=== PATIENT | female | born 1945 | race Caucasian/White ===

== ENCOUNTER 2024-03-18 14:11 | Outpatient (REF) | payer MEDICARE, SELFPAY ==
--- NOTE | ~2024-03-18 | MM_ITS ---
EXAMINATION: MM SCREENING DIGITAL BREAST TOMOSYNTHESIS, BILATERAL CLINICAL INFORMATION: Screening. Asymptomatic. COMPARISON: Mammography: This study is compared with prior exams dating back to 2019. TECHNIQUE: Digital breast tomosynthesis is performed in both the craniocaudal and mediolateral oblique views along with computer-aided detection (CAD). Synthesized 2D images are generated from the tomosynthesis. FINDINGS: There are scattered areas of fibroglandular density (ACR BI-RADS breast composition Category b). There are no significant masses, abnormal calcifications, or other abnormalities. There are a few, unchanged, benign calcification in the left breast. MM/MM tomosynthesis screening BI IMPRESSION: No mammographic evidence of malignancy. ASSESSMENT: BI-RADS BI-RADS 1 - Negative RECOMMENDATION: Routine annual mammography screening. 1 year F/U This examination should not preclude the clinical evaluation of a suspicious palpable abnormality. This patient's information was entered into a reminder system with a target due date for their next mammogram. Electronically signed by: Flower Jimenez MD 04/15/2024 12:09 PM EDT
== END 2024-03-18 14:12 | disposition home or self-care (01) ==
LOC: HO.MAMMO 14:11
PROVIDERS: PCP Internal Medicine; Visit Provider Internal Medicine
DX: Z12.31 Encounter for screening mammogram for malignant neoplasm of breast (principal)
CPT/HCPCS: 77063; 77067

== ENCOUNTER → 2024-03-18 14:30 | Outpatient (BNV) | payer MEDICARE, SELFPAY | PROVIDERS: PCP Internal Medicine; Visit Provider Radiology Diagnostic Radiology | DX: Z12.31 Encounter for screening mammogram for malignant neoplasm of breast (principal) | CPT/HCPCS: 77063; 77067 ==

== ENCOUNTER 2025-04-13 14:27 | Outpatient (REF) | payer MEDICARE, SELFPAY ==
--- NOTE | ~2025-04-13 | MM_ITS ---
EXAMINATION: MM SCREENING DIGITAL BREAST TOMOSYNTHESIS, BILATERAL CLINICAL INFORMATION: Screening. Asymptomatic. COMPARISON: Mammography: Comparison is made with available priors TECHNIQUE: Digital breast mammography with tomosynthesis is performed in both the craniocaudal and mediolateral oblique views along with computer-aided detection (CAD). FINDINGS: There are scattered areas of fibroglandular density (ACR BI-RADS breast composition Category b). Left: Circumscribed oval mass lateral breast anterior to middle depth on CC view. No suspicious calcifications or other abnormal findings. Right: Focal asymmetry central inner breast anterior to middle depth. No suspicious calcifications or other abnormal findings. MM/MM tomosynthesis screening BI IMPRESSION: Additional imaging is recommended ASSESSMENT: BI-RADS BI-RADS 0 - Incomplete: Needs additional Imaging. RECOMMENDATION: 1. Additional views of the bilateral breasts. 2. Targeted ultrasound if warranted after review of the additional views. 3. Radiology department staff will contact the patient for additional imaging. Additional Imaging required This examination should not preclude the clinical evaluation of a suspicious palpable abnormality. This patient's information was entered into a reminder system with a target due date for their next mammogram. Electronically signed by: Monika Van DO 04/18/2025 11:00 AM EDT
--- OUTSIDE RECORDS SUMMARY | 2025-04-13 15:09 | XMS_ITS | Clinical Summary ---
Author Organization [facility] Address [address] [place] [phone] Phone Care Team Providers Care Purchasing Manager Name Role Phone Manny Suarez MD Primary Care Provider [phone] Allergies No known active allergies Medications donepeziL (ARICEPT) 10 mg tablet Take 1 tablet (10 mg total) by mouth at bedtime. 09/21/2024 Active sertraline (ZOLOFT) 50 mg tablet Take 1 tablet (50 mg total) by mouth 1 (one) time each day. 30 each 11 01/20/2025 Active lacosamide (VIMPAT) 100 mg tabletIndication s:Seizure (CMS/[facility] V24, CMS/[facility] V28) Take 1 tablet (100 mg total) by mouth 2 (two) times a day. Max Daily Amount: 200 mg 90 tablet 1 02/08/2025 Active levETIRAcetam (KEPPRA) 1,000 mg tabletIndication s:Seizure (CMS/HCC V24, CMS/HCC V28) Take 1 tablet (1,000 mg total) by mouth 2 (two) times a day. 180 each 3 02/08/2025 Active Active Problems Problem Noted Date Diagnosed Date Status epilepticus (CMS/[facility] V24, CMS/[facility] V28) Other hyperlipidemia 01/17/2025 Primary hypertension 01/17/2025 Urinary retention 01/17/2025 Hypokalemia 01/17/2025 Cognitive disorder 01/17/2025 Seizure (CMS/[facility] V24, CMS/HCC V28) 01/08/2025 Subdural hematoma ([facility] V24, [facility] V28) Resolved Problems Problem Noted Date Diagnosed Date Resolved Date Ataxia 11/11/2024 11/11/2024 Dizziness, nonspecific 11/10/202411/11 Dizziness, nonspecific 11/09/202411/10 Encounters Date Type Department Care Team Description 02/07/2025 8:20 AM EDT Office Visit Neurology - [address] [place] [address] Hari Gonzalez MD Seizure ([facility] V24, [facility] V28) (Primary Dx); Cognitive disorder 01/09/2025 12:09 AM EDT - 01/19/2025 4:41 PM EDT Hospital Encounter [facility] [id number] [place] [address] Vik Dupree MD Karambelkar, Amrita, MD Grover, Prashant, MD Qureshi, Asher R, MD Condit, Daniel, MD Kellerman, Roy A Jr., Baljeet Bourne MD Seizure ([facility] V24, [facility] V28) (Primary Dx); Cognitive disorder Discharge Disposition: Home-Health Care [facility] [place] from Last 3 Months Surgical History Surgery Date Site/Laterality Comments COLONOSCOPY 03/13/2020 PROCEDURE: HISTORICAL COLONOSCOPY COLONOSCOPY 08/29/2013 PROCEDURE: HISTORICAL COLONOSCOPY Medical History Medical History Date Comments HTN (hypertension) DX:HTN (hyper tension) HLD (hyperlipidemia) Syncope Dementia ([facility] V24, [facility] V28) Traumatic subdural hematoma ([facility] V24, [facility] V28) Social History Tobacco Use Types Packs/Day Years Used Date Smoking Tobacco: Never Smokeless Tobacco: Never Alcohol Use Standard Drinks/Week Comments Never 0 (1 standard drink = 0.6 oz pur e alcohol) Housing Instability Answer Date Recorde d Are you worried that in the next 2 months you may not have stable housing? No 01/08/2025 Food Access & Nutrition Answer Date Rec orded Do you have access to a vari ety of food including fruits and vegetables? No 01/08/2025 Health Literacy Answer Date Recorded How often do you need to hav e someone help you when you read instructions, pamphlets, or other written material from your doctor or pharmacy? Never 01/08/2025 Caregiver: How often do you need to have someone help you when you read instructions, pamphlets, or other written material from your doctor or pharmacy? Not on file 01/08/2025 Financial Risk Answer Date Recorded How hard is it for you to pa y for the very basics like food, housing, medical care, and air conditioning / heating? Not very hard 01/08/2025 Transportation Answer Date Recorded Has the lack of transportati on kept you from meetings, work, or from getting things needed for daily living? No Has the lack of transportati on kept you from medical appointments or from getting medications? No 01/08/2025 Social Isolation Answer Date Recorded How often do you feel lonely or isolated from th ose around you? Never 01/08/2025 Food Risk Answer Date Recorded Within the past 12 months we worried whether our food would run out before we got money to buy more. Never true 01/11/2025 Within the past 12 months th e food we bought just didn't last and we didn't have money to get more. Never true 01/11/2025 Dependent Care Answer Date Recorded Do you need help finding or paying for care for your loved ones. For example, child watch attendant or elderly care for an older adult? No 01/08/2025 Education Answer Date Recorded Do you think completing more education or training, like finishing a GED, going to college, or learning a trade, would be helpful for you? No 01/08/2025 Employment and Income Answer Date Recor ded During the last four weeks, have you been actively looking for work? No 01/08/2025 Living Situation Answer Date Recorded What is your living situation? 0 01/08/2025 Comments Unknown Sex and Gender Information Value Date Recorded Sex Assigned at Female 01/08/2025 5:49 PM EDT Legal Sex Female 11:06 PM EST Gender Identity Female 01/08/2025 5:49 PM EDT Sexual Orientation Straight 01/08/2025 5: 49 PM EDT Obstetrics History Last Filed Vital Signs Vital Sign Reading Time Taken Comments Blood Pressure 126/59 01/19/2025 7:41 AM EDT Pulse 70 01/19/2025 7:41 AM EDT Temperature 36.8 C (98.2 F) 01/19/2025 7:41 AM EDT Respiratory Rate 18 01/19/2025 7:41 AM EDT Oxygen Saturation 93% 01/19/2025 7:41 AM EDT Inhaled Oxygen Concentration - - Weight 67 kg (147 lb 11.3 oz) 01/14/2025 10:00 A M EDT Height 154.9 cm (5' 1 ) 01/11/2025 9:00 AM EDT p er ID Body Mass Index 27.91 01/11/2025 9:00 AM EDT Plan of Treatment Upcoming Encounters Date Type Department Care Team (Late st Contact Info) Description 07/25/2025 2:00 PM EST Office Visit Neurology - [address] [place] [id number] Hari Gonzalez MD [address] [facility] [address] [place], [place] [id number] Health Maintenance Due Date Last Done Comments DTaP,Tdap,and Td Vaccines (1 - Tdap) 1966 Zoster Vaccines (1 of 2) 1997 Pneumococcal Vaccine: 50+ Years (2 of 2 - PPSV23) 09/05/2017 09/05/2016 Hepatitis C Screening 07/20/2022 Medicare Annual Wellness Visit 07/20/2022 RSV Immunization Adult Patients (1 - 1-dose 75+ series) 2022 COVID-19 Vaccine (5 - season) 2024 06/02/2022, 12/02/2021, 05/23/2021, Additional history exists Depression Screening 08/17/2024 Influenza Vaccine (#1) 2025 2, 05/27/2021, 05/15/2020, Additional history exists Social Influencers of Health Screening 01/11/2026 01/11/2025 Hypertension/CHF/CAD Annual BMP Blood Test 01/16/2026 01/16/2025, 01/15/2025, 01/14/2025, Additional history exists Falls Risk Assessment 01/19/2026 01/19/2025 Cholesterol Screening (Lipid Panel) 11/10/2029 11/10/2024 Osteoporosis Screening (Bone Density Screening) 11/13/2030 11/13/2020 Breast Cancer Screening Discontinued 11/22/19, 11/13/2020, 05/18/2019, Additional history exists HIB Vaccines Aged Out No longer eligi ble based on patient's age to complete this topic HPV Vaccines Aged Out No longer eligi ble based on patient's age to complete this topic Hepatitis A Vaccines Aged Out No long er eligible based on patient's age to complete this topic Hepatitis B Vaccines Aged Out No long er eligible based on patient's age to complete this topic IPV Vaccines Aged Out No longer eligi ble based on patient's age to complete this topic MMR Vaccines Aged Out No longer eligi ble based on patient's age to complete this topic Meningococcal ACWY Vaccine Aged Out N o longer eligible based on patient's age to complete this topic Meningococcal B Vaccine Aged Out No l onger eligible based on patient's age to complete this topic RSV Immunization Patients Under 20 months Aged Out No longer eligible based on patient's age to complete this topic Varicella Vaccines Aged Out No longer eligible based on patient's age to complete this topic Procedures Procedure Name Priority Date/Time Associated Diagnosis Comments OXYGEN THERAPY, ADULT Routine 01/16/2025 8:00 PM EDT OXYGEN THERAPY, ADULT Routine 01/16/2025 8:02 AM EDT COMPLETE BLOOD COUNT Routine 01/16/2025 5:15 AM EDT PHOSPHORUS Routine 01/16/2025 5:15 AM EDT MAGNESIUM Routine 01/16/2025 5:15 AM EDT BASIC METABOLIC PANEL Routine 01/16/2025 5:15 AM EDT LACTATE, WITH REFLEX Routine 01/16/2025 5:15 AM EDT POCT GLUCOSE BLOOD Routine 01/15/2025 12 :04 PM EDT OXYGEN THERAPY, ADULT Routine 01/15/2025 8:00 AM EDT CBC WITH AUTO DIFFERENTIAL Timed 01/15/2025 7:54 AM EDT MAGNESIUM Timed 01/15/2025 7:54 AM EDT CBC AND DIFFERENTIAL Timed 01/15/2025 7:54 AM EDT BASIC METABOLIC PANEL Timed 01/15/2025 7:54 AM EDT POCT GLUCOSE BLOOD Routine 01/15/2025 2: 04 AM EDT POCT GLUCOSE BLOOD Routine 01/14/2025 10 :08 PM EDT OXYGEN THERAPY, ADULT Routine 01/14/2025 8:00 PM EDT POCT GLUCOSE BLOOD Routine 01/14/2025 5: 22 PM EDT POCT GLUCOSE BLOOD Routine 01/14/2025 12 :33 PM EDT OXYGEN THERAPY, ADULT Routine 01/14/2025 12:06 PM EDT OXYGEN THERAPY, ADULT Routine 01/14/2025 12:06 PM EDT OXYGEN THERAPY, ADULT Routine 01/14/2025 8:47 AM EDT POCT GLUCOSE BLOOD Routine 01/14/2025 6: 20 AM EDT CBC WITH AUTO DIFFERENTIAL Timed 01/14/2025 5:07 AM EDT MAGNESIUM Timed 01/14/2025 5:07 AM EDT CBC AND DIFFERENTIAL Timed 01/14/2025 5:07 AM EDT BASIC METABOLIC PANEL Timed 01/14/2025 5:07 AM EDT POCT GLUCOSE BLOOD Routine 01/14/2025 12 :05 AM EDT OXYGEN THERAPY, ADULT Routine 01/13/2025 4:09 PM EDT OXYGEN THERAPY, ADULT Routine 01/13/2025 4:09 PM EDT POCT GLUCOSE BLOOD Routine 01/13/2025 1: 36 PM EDT ARTERIAL BLOOD GAS STAT 01/13/2025 1: 32 PM EDT XR CHEST 1 VIEW STAT 01/13/2025 1:18 PM EDT OXYGEN THERAPY, ADULT Routine 01/13/2025 8:12 AM EDT EXTUBATION Routine 01/13/2025 8:07 AM EDT POCT GLUCOSE BLOOD Routine 01/13/2025 5: 47 AM EDT PHOSPHORUS Add-On 01/13/2025 5:44 AM EDT CBC WITH AUTO DIFFERENTIAL Timed 01/13/2025 5:44 AM EDT MAGNESIUM Timed 01/13/2025 5:44 AM EDT CBC AND DIFFERENTIAL Timed 01/13/2025 5:44 AM EDT BASIC METABOLIC PANEL Timed 01/13/2025 5:44 AM EDT VENTILATOR, ADULT Routine 01/12/2025 8:0 1 AM EDT PHOSPHORUS Add-On 01/12/2025 4:46 AM EDT CBC WITH AUTO DIFFERENTIAL Timed 01/12/2025 4:46 AM EDT MAGNESIUM Timed 01/12/2025 4:46 AM EDT CBC AND DIFFERENTIAL Timed 01/12/2025 4:46 AM EDT BASIC METABOLIC PANEL Timed 01/12/2025 4:46 AM EDT POCT GLUCOSE BLOOD Routine 01/12/2025 12 :38 AM EDT VENTILATOR, ADULT Routine 01/11/2025 9:0 1 PM EDT VENTILATOR, ADULT Routine 01/11/2025 9:0 1 PM EDT POCT GLUCOSE BLOOD Routine 01/11/2025 5: 38 PM EDT POCT GLUCOSE BLOOD Routine 01/11/2025 12 :15 PM EDT CONTINUOUS EEG Routine 01/11/2025 7:11 AM EDT CONTINUOUS EEG Routine 01/11/2025 7:11 AM EDT CBC WITH AUTO DIFFERENTIAL Timed 01/11/2025 6:01 AM EDT WEST NILE ANTIBODIES, IGG AND IGM Routine 01/11/2025 6:01 AM EDT MAGNESIUM Timed 01/11/2025 6:01 AM EDT CBC AND DIFFERENTIAL Timed 01/11/2025 6:01 AM EDT BASIC METABOLIC PANEL Timed 01/11/2025 6:01 AM EDT POCT GLUCOSE BLOOD Routine 01/11/2025 5: 59 AM EDT TRIGLYCERIDES Timed 01/11/2025 1:38 AM EDT ECG ANNOTATED 01/11/2025 LIPID PANEL WITH REFLEX TO DIRECT LDL Routine 11/10/2024 5:21 AM EDT [facility] SCREENING DIGITAL Routine 11/21/2021 7:32 PM EDT Encounter for screening mammogram for malignant neoplasm of breast [facility] DEXA AXIAL SKELETON Routine 11/13/2020 2:45 PM EDT Asymptomatic menopausal state from Last 3 Months or Most Recently Relevant to Health Maintenance Results * Lactate, with reflex (01/16/2025 5:15 AM EDT) LACTIC ACID 1.5 0.5 - 2.2 mmol/L LAB BLOOD GAS METHOD 01/16/2025 5:30 AM EDT [facility] Blood Venous blood specimen / Unknown Venipuncture / Unknown 01/16/2025 5:15 AM EDT 01/16/2025 5:24 AM EDT us Elieser Pedraza MD LAB BLOOD ORDERABLES Final Re sult [facility] [address] [place] [address], [place] [phone] * (ABNORMAL) Complete blood count (01/16/2025 5:15 AM EDT) WBC 4.8 4.0 - 10.5 K/mcL LAB HEMETOLOGY METHOD 01/16/2025 5:31 AM EDT [facility] RBC 3.29(L) 4.20 - 5.40 M/mcL LAB HEMETOLOGY METHOD 01/16/2025 5:31 AM EDT [facility] Hemoglobin 10.6(L) 12.5 - 16.0 g/dL LAB HEMETOLOGY METHOD 01/16/2025 5:31 AM EDT [facility] Hematocrit 31.9(L) 37.0 - 47.0 % LAB HEMETOLOGY METHOD 01/16/2025 5:31 AM EDT [facility] MCV 96.9 78.0 - 100.0 FL LAB HEMETOLOGY METHOD 01/16/2025 5:31 AM EDT [facility] MCH 32.2 25.0 - 33.0 pcg LAB HEMETOLOGY METHOD 01/16/2025 5:31 AM EDT [facility] MCHC 33.3 32.0 - 36.0 g/dL LAB HEMETOLOGY METHOD 01/16/2025 5:31 AM EDT [facility] RDW 13.2 12.1 - 16.2 % LAB HEMETOLOGY METHOD 01/16/2025 5:31 AM EDT [facility] Platelets 317 150 - 450 K/mcL LAB HEMETOLOGY METHOD 01/16/2025 5:31 AM EDT [facility] MPV 8.2 7.4 - 11.4 FL LAB HEMETOLOGY METHOD 01/16/2025 5:31 AM EDT [facility] Blood Venous blood specimen / Unknown Venipuncture / Unknown 01/16/2025 5:15 AM EDT 01/16/2025 5:24 AM EDT us Elieser Pedraza MD LAB BLOOD ORDERABLES Final Re sult Performing Organization Address City/[facility]/ZIP Co de Phone Number [facility] [address] [place] [address], [place] [phone] * Phosphorus (01/16/2025 5:15 AM EDT) Only the most recent of3 resultswithin the time period is included. Phosphorus 4.2 2.5 - 4.5 mg/dL LAB CHEMISTRY METHOD 01/16/2025 5:55 AM EDT [facility] Blood Venous blood specimen / Unknown Venipuncture / Unknown 01/16/2025 5:15 AM EDT 01/16/2025 5:24 AM EDT Elieser Pedraza MD LAB BLOOD ORDERABLES Final Re sult Performing Organization Address City/[facility]/ZIP Co de Phone Number [facility] [address] [place] [address], [place] [phone] * Magnesium (01/16/2025 5:15 AM EDT) Only the most recent of6 resultswithin the time period is included. Magnesium 2.0 1.7 - 2.8 mg/dL LAB CHEMISTRY METHOD 01/16/2025 5:55 AM EDT [facility] Blood Venous blood specimen / Unknown Venipuncture / Unknown 01/16/2025 5:15 AM EDT 01/16/2025 5:24 AM EDT us Elieser Pedraza MD LAB BLOOD ORDERABLES Final Re sult [facility] [address] [place] [address], [place] [phone] * (ABNORMAL) Basic metabolic panel (01/16/2025 5:15 AM EDT) Only the most recent of6 resultswithin the time period is included. Sodium 140 135 - 145 mmol/L LAB CHEMISTRY METHOD 01/16/2025 5:55 AM EDT [facility] Potassium 3.7 3.5 - 5.1 mmol/L LAB CHEMISTRY METHOD 01/16/2025 5:55 AM EDT [facility] Chloride 103 98 - 107 mmol/L LAB CHEMISTRY METHOD 01/16/2025 5:55 AM EDT [facility] CO2 29 24 - 32 mmol/L LAB CHEMISTRY METHOD 01/16/2025 5:55 AM EDT [facility] Anion Gap 8 5 - 14 LAB CHEMISTRY METHOD 01/16/2025 5:55 AM EDT [facility] Glucose 92 70 - 199 mg/dL LAB CHEMISTRY METHOD 01/16/2025 5:55 AM EDT [facility] BUN 26(H) 7 - 17 mg/dL LAB CHEMISTRY METHOD 01/16/2025 5:55 AM EDT [facility] Creatinine 0.50 0.50 - 1.00 mg/dL LAB CHEMISTRY METHOD 01/16/2025 5:55 AM EDT [facility] eGFR 97 >=60 mL/min/1. 73m2 LAB CHEMISTRY METHOD 01/16/2025 5:55 AM EDT [facility] Comment:Calculation based on the Chronic Kidney Disease Epidemiology Collaboration (CKD-EPI) equation refit without adjustment for race. BUN/Creatinine Ratio 52.0(H) 12.0 - 20.0 LAB CHEMISTRY METHOD 01/16/2025 5:55 AM EDT [facility] Calcium 8.9 8.4 - 10.2 mg/dL LAB CHEMISTRY METHOD 01/16/2025 5:55 AM EDT [facility] Blood Venous blood specimen / Unknown Venipuncture / Unknown 01/16/2025 5:15 AM EDT 01/16/2025 5:24 AM EDT us Elieser Pedraza MD LAB BLOOD ORDERABLES Final Re sult Performing Organization Address City/[facility]/ZIP Co de Phone Number [facility] [address] [place] [address], [place] [phone] * POCT Glucose, blood (01/15/2025 12:04 PM EDT) Only the most recent of13 resultswithin the time period is included. Glucose POCT 87 70 - 199 mg/dL 01/15/2025 12:05 PM EDT [facility] Comment: Fasting Reference Range: 70-99 mg/dL Non-Fasting Reference Range: 70-199 mg/dL Blood Capillary blood specimen / Unknown 01/15/2025 12:04 PM EDT 01/15/2025 12:06 PM EDT us Elieser Pedraza MD LAB POINT OF CARE TE ST DOCKED DEVICE UNSOLICITED RESULTS Final Result [facility] [address] [place] [address], [place] [phone] * (ABNORMAL) CBC auto differential (01/15/2025 7:54 AM EDT) Only the most recent of5 resultswithin the time period is included. WBC 6.8 4.0 - 10.5 K/mcL LAB HEMETOLOGY METHOD 01/15/2025 8:15 AM EDT [facility] RBC 3.57(L) 4.20 - 5.40 M/mcL LAB HEMETOLOGY METHOD 01/15/2025 8:15 AM EDT [facility] Hemoglobin 11.7(L) 12.5 - 16.0 g/dL LAB HEMETOLOGY METHOD 01/15/2025 8:15 AM EDT [facility] Hematocrit 34.1(L) 37.0 - 47.0 % LAB HEMETOLOGY METHOD 01/15/2025 8:15 AM EDT [facility] MCV 95.6 78.0 - 100.0 FL LAB HEMETOLOGY METHOD 01/15/2025 8:15 AM EDT [facility] MCH 32.8 25.0 - 33.0 pcg LAB HEMETOLOGY METHOD 01/15/2025 8:15 AM EDT [facility] MCHC 34.3 32.0 - 36.0 g/dL LAB HEMETOLOGY METHOD 01/15/2025 8:15 AM EDT [facility] RDW 13.4 12.1 - 16.2 % LAB HEMETOLOGY METHOD 01/15/2025 8:15 AM EDT [facility] Platelets 311 150 - 450 K/mcL LAB HEMETOLOGY METHOD 01/15/2025 8:15 AM EDT [facility] MPV 8.3 7.4 - 11.4 FL LAB HEMETOLOGY METHOD 01/15/2025 8:15 AM EDT [facility] Neutrophils Relative 48.7 44.0 - 74.0 % LAB HEMETOLOGY METHOD 01/15/2025 8:15 AM EDT [facility] Lymphocytes Relative 27.1 20.0 - 48.0 % LAB HEMETOLOGY METHOD 01/15/2025 8:15 AM EDT [facility] Monocytes Relative 18.8(H) 2.0 - 12.0 % LAB HEMETOLOGY METHOD 01/15/2025 8:15 AM EDT [facility] Eosinophils Relative 4.3 0.0 - 6.0 % LAB HEMETOLOGY METHOD 01/15/2025 8:15 AM EDT [facility] Basophils Relative 1.1 0.0 - 2.0 % LAB HEMETOLOGY METHOD 01/15/2025 8:15 AM EDT [facility] Neutrophils Absolute 3.30 1.80 - 7.80 K/mcL LAB HEMETOLOGY METHOD 01/15/2025 8:15 AM EDT [facility] Lymphocytes Absolute 1.80 1.00 - 3.20 K/mcL LAB HEMETOLOGY METHOD 01/15/2025 8:15 AM EDT [facility] Monocytes Absolute 1.30(H) 0.00 - 0.80 K/mcL LAB HEMETOLOGY METHOD 01/15/2025 8:15 AM EDT [facility] Eosinophils Absolute 0.30 0.00 - 0.50 K/mcL LAB HEMETOLOGY METHOD 01/15/2025 8:15 AM EDT [facility] Basophils Absolute 0.10 0.00 - 0.20 K/mcL LAB HEMETOLOGY METHOD 01/15/2025 8:15 AM EDT [facility] Blood Venous blood specimen / Unknown Venipuncture / Unknown 01/15/2025 7:54 AM EDT 01/15/2025 8:03 AM EDT us Vik Dupree MD LAB BLOOD ORDERABLES Final Resul t [facility] [address] [place] [address], * (ABNORMAL) Arterial blood gas (01/13/2025 1:32 PM EDT) pH, Arterial 7.42 7.35 - 7.45 pH LAB BLOOD GAS METHOD 01/13/2025 1:56 PM EDT [facility] pCO2, Arterial 40 35 - 45 mmHg LAB BLOOD GAS METHOD 01/13/2025 1:56 PM EDT [facility] pO2, Arterial 150(H) 80 - 105 mmHg LAB BLOOD GAS METHOD 01/13/2025 1:56 PM EDT [facility] HCO3, Arterial 26.0 22.0 - 26.0 mmol/L LAB BLOOD GAS METHOD 01/13/2025 1:56 PM EDT [facility] O2 Sat, Arterial 100.0(H) 95.0 - 98.0 % LAB BLOOD GAS METHOD 01/13/2025 1:56 PM EDT [facility] Base Excess, Arterial 1.3 0.0 - 2.0 mmol/L LAB BLOOD GAS METHOD 01/13/2025 1:56 PM EDT [facility] FIO2 23.00 01/13/2025 1:56 PM EDT [facility] Blood Arterial blood specimen / Unknown Arterial Puncture / Unknown 01/13/2025 1:32 PM EDT 01/13/2025 1:42 PM EDT us Johnie White MD LAB BLOOD ORDERABLES Final Re sult [facility] [address] [place] [address], [place] [phone] * XR Chest 1 View (01/13/2025 1:18 PM EDT) Anatomical Region Laterality Modality Body Radiographic Phoebe ging 01/13/2025 1:44 PM EDT Impressions 01/13/2025 1:45 PM EDT The lungs are hypoinflated resulting in obscuration of the cardiac silhouette and pulmonary vasculature. Interval extubation and removal of the enteric tube. Left IJ central venous catheter with tip projecting over the confluence of the left brachiocephalic vein and the SVC. Patchy opacities at the left lung base, likely reflecting atelectasis, though developing pneumonia should be excluded clinically. Report reviewed and signed by : Dr. Jalil Hanson on 01/13/2025 1:45 PM. Workstation Name - [id number] -------- FINAL REPORT -------- Dictated By: Jalil Hanson Dictated Date: 01/13/2025 13:44 ET Assigned Physician: Jalil Hanson Reviewed and Electronically Signed By: Jalil Hanson Signed Date: 01/13/2025 13:45 ET Workstation ID: [id number] Transcribed By: Self Edit Transcribed Date: 01/13/2025 13:44 ET Narrative 01/13/2025 1:45 PM EDT CLINICAL HISTORY: Dyspnea on exertion (FELICIANO). TECHNIQUE: Portable chest x-ray. COMPARISON: Chest x-ray 01/09/2025. FINDINGS: LINES AND TUBES: Interval extubation and removal of the enteric tube. Left IJ central venous catheter with tip projecting over the confluence of the left brachiocephalic vein and the SVC. CARDIAC SILHOUETTE: The lungs are hypoinflated resulting in obscuration of the cardiac silhouette and pulmonary vasculature. LUNGS/PLEURA: Patchy opacities at the left lung base, likely reflecting atelectasis, though developing pneumonia should be excluded clinically. No significant pleural effusions. No evidence of a pneumothorax. BONES: No aggressive or acute bony pathology. Procedure Note Jalil Hanson MD - 01/13/2025 CLINICAL HISTORY: Dyspnea on exertion (FELICIANO). TECHNIQUE: Portable chest x-ray. COMPARISON: Chest x-ray 01/09/2025. FINDINGS: LINES AND TUBES: Interval extubation and removal of the enteric tube.Left IJ central venous catheter with tip projecting over the confluence ofthe left brachiocephalic vein and the SVC. CARDIAC SILHOUETTE: The lungs are hypoinflated resulting in obscuration ofthe cardiac silhouette and pulmonary vasculature. LUNGS/PLEURA: Patchy opacities at the left lung base, likely reflecting atelectasis,though developing pneumonia should be excluded clinically. No significant pleural effusions. No evidence of a pneumothorax. BONES: No aggressive or acute bony pathology. IMPRESSION: The lungs are hypoinflated resulting in obscuration of the cardiacsilhouette and pulmonary vasculature. Interval extubation and removal of the enteric tube. Left IJ centralvenous catheter with tip projecting over the confluence of the leftbrachiocephalic vein and the SVC. Patchy opacities at the left lung base, likely reflecting atelectasis,though developing pneumonia should be excluded clinically. Report reviewed and signed by : Dr. Jalil Hanson on 01/13/2025 1:45 PM.Workstation Name - [id number] -------- FINAL REPORT -------- Dictated By: Jalil Hanson Dictated Date: 01/13/2025 13:44 ET Assigned Physician: Jalil Hanson Reviewed and Electronically Signed By: Jalil Hanson Signed Date: 01/13/2025 13:45 ET Workstation ID: [id number] Transcribed By: Self Edit Transcribed Date: 01/13/2025 13:44 ET us Johnie White MD IMG XR PROCEDURES Final Resul t * Continuous EEG (01/11/2025 7:11 AM EDT) Narrative [facility] - 01/12/2025 8:51 AM EDT Anders Eastman MD 01/15/2025 6:58 PM Long-term Monitoring/ Continuous Video Electroencephalography (LTM) Report Study start date, time: 01/11/2025; 7 AM Study end date, time: 01/11/2025; 2:45 PM Total duration: 7 hours and 14 minutes Clinical Information History: Srinivas Luque is a 79 y.o. female with dementia, hypertension, hyperlipidemia, syncope, recurrently fall and prior traumatic subdural hematoma. Last hospitalized on 11/09 to 11/10/2024 to [facility] after being seen at urgent care after being found bruised of the tongue (son believes she bit her tongue without knowing). Blood pressure initially was elevated 176/944. Due to ataxia, patient was not discharged from the emergency room. Her sodium was noted to be 127 with issue with overcorrection to 140. MRI of the brain showed no acute intracranial process. Sedation: Antiseizure medication: Medications: Current Facility-Administered Medications: acetaminophen (TYLENOL) tablet 650 mg, 650 mg, oral, q6h PRN, Judy Bryant DO acyclovir (ZOVIRAX) 480 mg in sodium chloride 0.9 % 100 mL IVPB, 10 mg/kg (Keeling), intravenous, q8h, Johnie White MD, Stopped at 01/11/25 1835 amLODIPine (NORVASC) tablet 5 mg, 5 mg, oral, Daily, Avtandil MD Montrell, 5 mg at 01/11/25 1046 chlorhexidine (PERIDEX) 0.12 % solution 15 mL, 15 mL, Mouth/Throat, BID, Judy Bryant DO, 15 mL at 01/11/25 1543 dexmedeTOMIDine (PRECEDEX) 200 mcg in sodium chloride 0.9 % 50 mL (4 mcg/mL) infusion, 0.2-1.5 mcg/kg/hr, intravenous, Continuous, Malia Hernandez MD, Paused at 01/10/25 2245 dextrose (D50W) 50% injection 12.5 g, 12.5 g, intravenous, q15 min PRN, Malia Hernandez MD, 12.5 g at 01/10/25 1820 dextrose (D50W) 50% injection 25 g, 25 g, intravenous, q15 min PRN, Malia Hernandez MD dextrose 15 gram/60 mL oral solution 15 g, 15 g, oral, q15 min PRN, Malia Hernandez MD dextrose 15 gram/60 mL oral solution 30 g, 30 g, oral, q15 min PRN, Malia Hernandez MD enoxaparin (LOVENOX) injection 40 mg, 40 mg, subcutaneous, q24h DOUG, Aryan Mims MD, 40 mg at 01/11/25 0815 fentaNYL (PF) (SUBLIMAZE) injection 25 mcg, 25 mcg, intravenous, q1h PRN, Armando Roger MD, 25 mcg at 01/11/25 1832 Glucagon HCl (rDNA) injection 1 mg, 1 mg, intramuscular, Once PRN, Malia Hernandez MD lacosamide (VIMPAT) injection 100 mg, 100 mg, intravenous, q12h, Judy Bryant DO, 100 mg at 01/11/25 170 levETIRAcetam (KEPPRA) injection 1,000 mg, 1,000 mg, intravenous, BID, Maryam Dejesus MD, 1,000 mg at 01/11/252124 mupirocin (BACTROBAN) 2 % ointment 1 Application, 1 Application, Each Nostril, BID, Johnie White MD, 1 Application at 01/11/252124 norepinephrine (LEVOPHED) infusion 8 mg/250 mL (premix), 0.01-0.99 mcg/kg/min, intravenous, Continuous, Judy Bryant DO, Paused at 01/11/25 0045 pantoprazole (PROTONIX) injection 40 mg, 40 mg, intravenous, q24h, Aryan Mims MD, 40 mg at 01/11/25 154 propofoL (DIPRIVAN) infusion 10 mg/mL, 10-80 mcg/kg/min, intravenous, Continuous, Judy Bryant DO, Stopped at 01/10/25 172 Insert peripheral IV, , , Once AND Maintain IV access, , , Until discontinued AND Saline lock IV, , , Once AND sodium chloride 0.9 % flush 10 mL, 10 mL, intravenous, BID, 10 mL at 01/11/252125 AND sodium chloride 0.9 % flush 10 mL, 10 mL, intravenous, PRN, Judy Bryant DO Recording Techniques Instrumentation: A digital EEG was performed using the standard international 10-20 electrode placement and single lead EKG electrode with a sampling rate of 200 samples per second/per channel, at impedance levels less than 10 K Ohms. Montages: Standard 10-20 system montages Type of Study: Long-term video EEG monitoring Conditions of Recording:, coma Results Background Symmetry: Asymmetric (>=50% of epoch) - Left hemisphere slower Left hemisphere predominant background frequency - Delta Left hemisphere superimposed background frequency: theta Right hemisphere predominant background frequency alpha/ beta/ theta Right hemisphere superimposed background frequency: beta Voltage - left hemisphere: Normal (most activity 20+ V) Voltage - right hemisphere: Normal (most activity 20+ V) Variability: Yes Reactivity to stimulation: Yes Continuity: Continuous AP Gradient: Absent Focal slowing: Yes Type: Hemispheric Hemisphere: left EKG results: Normal sinus rhythm Sleep: During drowsiness, the alpha rhythm attenuated and diffuse background slowing appeared. Stage 2 sleep architecture was not seen Epileptiform discharges: Rare left frontotemporal (F3/ F7/T3) sharp waves seen Classification of the findings: 1. Sharp waves, left greater than right, frontotemporal -intermittent 2. Intermittent polymorphic slowing, delta and theta, left, frontotemporal 3. Mild background slowing, theta Impression This is an abnormal continuous video EEG due to the presence of There is evidence of left greater than right fronto-temporal focal cortical irritability with potential for seizures. Focal slowing over the bitemporal region, consistent with a superimposed area of focal structural dysfunction in those regions Diffuse delta/theta slowing of the background, a nonspecific finding consistent with moderate diffuse neuronal dysfunction. Compared to prior EEG: Improvement in EEG background. Epileptiform discharge burden decreased LTM discontinued Anders Eastman MD Epileptologist/ staff neurologist [facility] us Vik Dupree MD NEUROLOGY ORDERABLES Final Resul t [facility] * Continuous EEG (01/11/2025 7:11 AM EDT) Narrative [facility] - 01/11/2025 9:11 AM EDT Anders Eastman MD 01/11/2025 11:28 AM Long-term Monitoring/ Continuous Video Electroencephalography (LTM) Report Study start date, time: 01/10/2025; 7 AM Study end date, time: 01/11/2025; 7 AM Total duration: 24 hours Clinical Information History: Srinivas Luque is a 79 y.o. female with dementia, hypertension, hyperlipidemia, syncope, recurrently fall and prior traumatic subdural hematoma. Last hospitalized on 11/09 to 11/10/2024 to [facility] after being seen at urgent care after being found bruised of the tongue (son believes she bit her tongue without knowing). Blood pressure initially was elevated 176/944. Due to ataxia, patient was not discharged from the emergency room. Her sodium was noted to be 127 with issue with overcorrection to 140. MRI of the brain showed no acute intracranial process. Sedation: Antiseizure medication: Medications: Current Facility-Administered Medications: acetaminophen (TYLENOL) tablet 650 mg, 650 mg, oral, q6h PRN, Judy Bryant DO acyclovir (ZOVIRAX) 480 mg in sodium chloride 0.9 % 100 mL IVPB, 10 mg/kg (Keeling), intravenous, q8h, Aryan Mims MD, Stopped at 01/10/25 1805 ampicillin (OMNIPEN) 2 g in sodium chloride 0.9 % 100 mL IVPB - MBP, 2 g, intravenous, q4h, Aryan Mims MD, Stopped at 01/10/25 1852 cefTRIAXone (ROCEPHIN) 2 g in sterile water 20 mL IV syringe, 2 g, intravenous, q24h, Johnie White MD, 2 g at 01/10/25 1444 chlorhexidine (PERIDEX) 0.12 % solution 15 mL, 15 mL, Mouth/Throat, BID, Judy Bryant DO, 15 mL at 01/10/25 1609 dexmedeTOMIDine (PRECEDEX) 200 mcg in sodium chloride 0.9 % 50 mL (4 mcg/mL) infusion, 0.2-1.5 mcg/kg/hr, intravenous, Continuous, Malia Hernandez MD, Last Rate: 3.04 mL/hr at 01/10/25 1900, 0.2 mcg/kg/hr at 01/10/25 1900 dextrose (D50W) 50% injection 12.5 g, 12.5 g, intravenous, q15 min PRN, Malia Hernandez MD, 12.5 g at 01/10/25 1820 dextrose (D50W) 50% injection 25 g, 25 g, intravenous, q15 min PRN, Malia Hernandez MD dextrose 15 gram/60 mL oral solution 15 g, 15 g, oral, q15 min PRN, Malia Hernandez MD dextrose 15 gram/60 mL oral solution 30 g, 30 g, oral, q15 min PRN, Malia Hernandez MD enoxaparin (LOVENOX) injection 40 mg, 40 mg, subcutaneous, q24h DOUG, Aryan Mims MD, 40 mg at 01/10/25 0816 Glucagon HCl (rDNA) injection 1 mg, 1 mg, intramuscular, Once PRN, Malia Hernandez MD lacosamide (VIMPAT) injection 100 mg, 100 mg, intravenous, q12h, Judy Bryant DO, 100 mg at 01/10/25 1709 levETIRAcetam (KEPPRA) injection 1,000 mg, 1,000 mg, intravenous, BID, Judy DO Manny, 1,000 mg at 01/10/25 0815 mupirocin (BACTROBAN) 2 % ointment 1 Application, 1 Application, Each Nostril, BID, Johnie White MD, 1 Application at 01/10/25 1444 norepinephrine (LEVOPHED) infusion 8 mg/250 mL (premix), 0.01-0.99 mcg/kg/min, intravenous, Continuous, Judy Bryant DO, Held at 01/10/25 1117 pantoprazole (PROTONIX) injection 40 mg, 40 mg, intravenous, q24h, Aryan Mims MD, 40 mg at 01/10/25 1444 propofoL (DIPRIVAN) infusion 10 mg/mL, 10-80 mcg/kg/min, intravenous, Continuous, Judy Bryant DO, Stopped at 01/10/25 1727 Insert peripheral IV, , , Once AND Maintain IV access, , , Until discontinued AND Saline lock IV, , , Once AND sodium chloride 0.9 % flush 10 mL, 10 mL, intravenous, BID, 10 mL at 01/09/252027 AND sodium chloride 0.9 % flush 10 mL, 10 mL, intravenous, PRN, Judy Bryant DO vancomycin (VANCOCIN) 1,000 mg in sodium chloride 0.9 % 250 mL IVPB, 15 mg/kg, intravenous, q24h, Judy Bryant DO, Stopped at 01/09/25 215 Recording Techniques Instrumentation: A digital EEG was performed using the standard international 10-20 electrode placement and single lead EKG electrode with a sampling rate of 200 samples per second/per channel, at impedance levels less than 10 K Ohms. Montages: Standard 10-20 system montages Type of Study: Long-term video EEG monitoring Conditions of Recording:, coma Results Background Symmetry: Asymmetric (>=50% of epoch) - Left hemisphere slower Left hemisphere predominant background frequency - Delta Left hemisphere superimposed background frequency: theta Right hemisphere predominant background frequency alpha/ beta/ theta Right hemisphere superimposed background frequency: beta Voltage - left hemisphere: Normal (most activity 20+ V) Voltage - right hemisphere: Normal (most activity 20+ V) Variability: Yes Reactivity to stimulation: Yes Continuity: Continuous AP Gradient: Absent Focal slowing: Yes Type: Hemispheric Hemisphere: left EKG results: Normal sinus rhythm Sleep: During drowsiness, the alpha rhythm attenuated and diffuse background slowing appeared. Stage 2 sleep architecture was not seen Epileptiform discharges: Rare left frontotemporal (F3/ F7/T3) sharp waves seen Classification of the findings: 1. Sharp waves, left greater than right, frontotemporal -intermittent 2. Intermittent polymorphic slowing, delta and theta, left, frontotemporal 3. Mild background slowing, theta Impression This is an abnormal continuous video EEG due to the presence of There is evidence of left greater than right fronto-temporal focal cortical irritability with potential for seizures. Focal slowing over the bitemporal region, consistent with a superimposed area of focal structural dysfunction in those regions Diffuse delta/theta slowing of the background, a nonspecific finding consistent with moderate diffuse neuronal dysfunction. Compared to prior EEG: Bilateral frontotemporal sharp waves seen. EEG background suggestive of moderate encephalopathy Anders Eastman MD Epileptologist/ staff neurologist [facility] us Vik Dupree MD NEUROLOGY ORDERABLES Final Resul t [facility] * West Nile antibodies, IgG and IgM (01/11/2025 6:01 AM EDT) Pathologist [facility] West Nile Virus Antibody IgG 0.27 <1.30 INDEX 01/19/2025 1:15 PM EDT [facility] Comment: IgG NEGATIVE. An index value of <1.30 indicates IgG antibodies to West Nile virus were not detected. The absence of IgG antibodies is presumptive evidence that the patient was not infected with West Nile virus or another flavivirus. However, the sample may have been drawn before antibodies were detectable, or the patient may be immunosuppressed. If infection is suspected, another sample should be drawn 7 - 14 days later and tested. Refer to the CDC guidelines for diagnosis of West Nile encephalitis. West Nile Virus Antibody IgM 0.01 <0.90 INDEX 01/19/2025 1:15 PM EDT [facility] Comment: IgM NEGATIVE. An index value of <0.90 indicates IgM antibodies to West Nile virus were not detected. The absence of IgM antibodies is presumptive evidence that the patient was not recently infected with West Nile virus or another flavivirus. However, the sample may have been drawn before antibodies were detectable, or the patient may be immunosuppressed. If infection is suspected, then another sample should be drawn 7 to 14 days later and tested. Refer to CDC guidelines for diagnosis of West Nile encephalitis. Test performed at [facility], [address] , [place] [address] Melissa Jacobsen MD, PhD - Commissions Coordinator Blood Venous blood specimen / Unknown Venipuncture / Unknown 01/11/2025 6:01 AM EDT 01/11/2025 6:07 AM EDT Rupert Shafer MD LAB BLOOD ORDERABLES Final Resul t [facility] [address] [place] [address] * Triglyceride Monitoring (01/11/2025 1:38 AM EDT) Pathologist [facility] Triglycerides 102 <150 mg/dL LAB CHEMISTRY METHOD 01/11/2025 2:27 AM EDT [facility] Blood Venous blood specimen / Unknown Venipuncture / Unknown 01/11/2025 1:38 AM EDT 01/11/2025 1:55 AM EDT Vik Dupree MD LAB BLOOD ORDERABLES Final Resul t [facility] [address] [place] [address], [place] [phone] * ECG-Annotated (01/11/2025) us Provider Onbase ECG ORDERABLES Final Result * Lipid panel with reflex to direct LDL (11/10/2024 5:21 AM EDT) Cholesterol 141 0 - 200 mg/dL LAB CHEMISTRY METHOD 11/10/2024 6:25 AM EDT [facility] Triglycerides 47 0 - 150 mg/dL LAB CHEMISTRY METHOD 11/10/2024 6:25 AM EDT [facility] HDL 57 >=40 mg/dL LAB CHEMISTRY METHOD 11/10/2024 6:25 AM EDT [facility] LDL Calculated 75 0 - 100 mg/dL LAB CHEMISTRY METHOD 11/10/2024 6:25 AM EDT [facility] VLDL Cholesterol Leighton 9.4 mg/dL LAB CHEMISTRY METHOD 11/10/2024 6:25 AM EDT [facility] Non HDL Chol. (LDL+VLDL) 84 <145 mg/dL LAB CHEMISTRY METHOD 11/10/2024 6:25 AM EDT [facility] Chol/HDL Ratio 2.5 0.0 - 4.4 LAB CHEMISTRY METHOD 11/10/2024 6:25 AM EDT [facility] Blood Venous blood specimen / Unknown Venipuncture / Unknown 11/10/2024 5:21 AM EDT 11/10/2024 5:52 AM EDT us Adan HERNANDEZ LAB BLOOD ORDERABLES Final Res ult [facility] [address] [place] [address], * BUNNY SCREENING DIGITAL (11/21/2021 7:32 PM EDT) Anatomical Region Laterality Modality Mammography 11/21/2021 11:0 8 AM EDT Narrative 11/21/2021 7:32 PM EDT [facility] Diagnostic Imaging Department [address] [place] [address] Patient: SRINIVAS LUQUE I /Age/Sex: 1945 - 76 - F Unit#: [id number] Location/Status: [facility] CLI Mnemonic/Ordering Site: [facility] Ordering Physician: MANNY SUAREZ MD Bunny Screening Digital - 11/21/21 - 1156 History: Bilateral breast cancer screening. Technique: Digital mammography. Conventional CC and MLO projections with tomosynthesis MLO views and computer aided detection. Comparison: [facility] 11/13/2020, dating back to 03/14/2013. Breast tissue consists of a combination of fatty and fibroglandular elements (category b density) bilaterally (as calculated by [employer] software). There are benign calcifications on the left. No suspicious group of calcification, architectural distortion, suspicious mass or suspicious asymmetry within either breast. Impression: No evidence of malignancy. BIRADS Category 2, benign findings, 3342F 19182, [id number] Note: Patient information entered into a reminder system with a target due date for the next mammogram: CPT II 7025F Dictating Physician: JIN MYRICK MD Electronically Signed by: JIN MYRICK MD Dic Date/Time: 11/21/211928 Sign date/Time: 11/21/211931 Procedure Note Jin Myrick MD - 08/06/2022 [facility] Diagnostic Imaging Department [address] [place] [id number] Patient: SRINIVAS LUQUE Nicole /Age/Sex: 1945 - 76 - F Unit#: [id number] Location/Status: SPDIMAM/REG CLI Mnemonic/Ordering Site: [facility] Ordering Physician: MANNY SUAREZ MD Bunny Screening Digital - 11/21/21 - 1156 History: Bilateral breast cancer screening. Technique: Digital mammography. Conventional CC and MLO projectionswith tomosynthesis MLO views and computer aided detection. Comparison: [facility] 11/13/2020, dating back to 03/14/2013. Breast tissue consists of a combination of fatty and fibroglandularelements (category b density) bilaterally (as calculated by [employer]). There are benign calcifications on the left. No suspicious group of calcification, architectural distortion, suspicious mass or suspiciousasymmetry within either breast. Impression: No evidence of malignancy. BIRADS Category 2, benign findings, 3342F 23019, 24982 Note: Patient information entered into a reminder system with a target duedate for the next mammogram: CPT II 7025F Dictating Physician: JIN MYRICK MD Electronically Signed by: JIN MYRICK MD Dic Date/Time: 11/21/211928 Sign date/Time: 11/21/211931 Manny Suarez MD IMG BI PROCEDURES Final Result * BUNNY DEXA AXIAL SKELETON (11/13/2020 2:45 PM EDT) Anatomical Region Laterality Modality Mammography 11/13/2020 9:09 AM EDT Narrative 11/13/2020 2:45 PM [facility] Diagnostic Imaging Department [address] [place] [address] Patient: SRINIVAS LUQUE Nicole /Age/Sex: 1945 - 75 - F Unit#: [id number] Location/Status: SPDIMAM/REG CLI Mnemonic/Ordering Site: [facility]DEXAAX/[facility] Ordering Physician: ARYAN LOPEZ MD Bunny Dexa Axial Skeleton - 11/13/201028 HISTORY: The patient is a 75-year-old postmenopausal female with clinical concern for metabolic bone disease. FINDINGS: Dual energy x-ray absorptiometry of the lumbar spine and femurs is performed. The mean bone mineral density at L1-L4 is 1.101 gm/cm2 which is 95% of that of young normals and 117% of that of age matched controls. This yields a T-score of -0.5 and a Z-score of 1.3 and there is therefore no evidence of osteoporosis or osteopenia here. The mean bone mineral density of the femurs bilaterally is 1.077 gm/cm2 which is 107% of that of young normals and 136% of that of age matched controls. This yields a T-score of 0.5 and a Z-score of 2.3 and there is therefore no evidence of osteoporosis or osteopenia here. IMPRESSION: 1. There is no evidence of osteoporosis or osteopenia. There has been a decrease of 0.6% in bone mineral density in the lumbar spine since the prior examination of 05/08/2017. There has been a decrease of 4.6% in bone mineral density in the right femur and a decrease of 2.0% in bone mineral density in the left femur. 2. FRAX analysis yields a 10-year probability of major osteoporotic fracture of 8.0% and a 10-year probability of hip fracture of 0.7%. Code 79773 Dictating Physician: SABRA JUARES MD Electronically Signed by: SABRA JUARES MD Dic Date/Time: 11/13/20 1443 Sign date/Time: 11/13/20 1445 Procedure Note Sabra Juares MD - 08/05/2022 [facility] Diagnostic Imaging Department [address] [place] [address] Patient: SRINIVAS LUQUE I /Age/Sex: 1945 - 75 - F Unit#: [id number] Location/Status: [facility] CLI Mnemonic/Ordering Site: [facility] Ordering Physician: ARYAN LOPEZ MD [facility] Dexa Axial Skeleton - 11/13/20 - 1029 HISTORY: The patient is a 75-year-old postmenopausal female withclinical concern for metabolic bone disease. FINDINGS: Dual energy x-ray absorptiometry of the lumbar spine and femursis performed. The mean bone mineral density at L1-L4 is 1.101 gm/cm2 which is95% of that of young normals and 117% of that of age matched controls. Thisyields a T-score of -0.5 and a Z-score of 1.3 and there is therefore no evidenceof osteoporosis or osteopenia here. The mean bone mineral density of the femurs bilaterally is 1.077 gm/cl4zyrnl is 107% of that of young normals and 136% of that of age matched controls.This yields a T-score of 0.5 and a Z-score of 2.3 and there is therefore noevidence of osteoporosis or osteopenia here. IMPRESSION: 1. There is no evidence of osteoporosis or osteopenia. There has been a decrease of 0.6% in bone mineral density in the lumbar spine since theprior examination of 05/08/2017. There has been a decrease of 4.6% in bonemineral density in the right femur and a decrease of 2.0% in bone mineral densityin the left femur. 2. FRAX analysis yields a 10-year probability of major osteoporoticfracture of 8.0% and a 10-year probability of hip fracture of 0.7%. Code 29135 Dictating Physician: SABRA JUARES MD Electronically Signed by: SABRA JUARES MD Dic Date/Time: 11/13/20 1443 Sign date/Time: 11/13/20 1445 Aryan Lopez MD IMG BI PROCEDURES Final Result from Last 3 Months or Most Recently Relevant to Health Maintenance Insurance [employer] MEDICARE Advance Directives Documents on File Type Date Recorded Patient Distributor Sales Consultant Expl anation Advance Directives and Living Will 01/11/2025 8:43 AM Health Care Decision (hx) 12/24/2022 AD AARON DIRECTIVE Health Care Decision (hx) 12/24/2022 AD AARON DIRECTIVE Health Care Decision (hx) 12/24/2022 AD AARON DIRECTIVE Health Care Decision (hx) 12/24/2022 AD AARON DIRECTIVE Health Care Decision (hx) 12/24/2022 AD AARON DIRECTIVE Health Care Decision (hx) 12/24/2022 AD AARON DIRECTIVE Health Care Decision (hx) 12/21/2022 HE ALTH CARE PROXY Health Care Decision (hx) 12/21/2022 HE ALTH CARE PROXY Health Care Decision (hx) 12/21/2022 HE ALTH CARE PROXY Health Care Decision (hx) 12/21/2022 HE ALTH CARE PROXY Health Care Decision (hx) 12/21/2022 HE ALTH CARE PROXY Health Care Decision (hx) 12/21/2022 HE ALTH CARE PROXY * Full Code - Default (Latest Code Status on File) Date Activated Date Inactivated Comments 01/09/2025 12:15 AM 01/19/2025 6:47 PM This is orde r is used when code status has not been discussed with the patient, or code status is otherwise unknown/unconfirmed To update the patient's code status, place a code status order. Do not modify or discontinue any currently active code status orders. * Full Code - Default Date Activated Date Inactivated Comments 01/08/2025 3:34 PM 01/09/2025 12:09 AM This is ord er is used when code status has not been discussed with the patient, or code status is otherwise unknown/unconfirmed To update the patient's code status, place a code status order. Do not modify or discontinue any currently active code status orders. * Full Code - Confirmed Date Activated Date Inactivated Comments 11/09/2024 11:24 PM 11/11/2024 4:24 PM This code s tatus was ascertained in the following way: Code status discussion: discussion with patient To update the patient's code status, place a code status order. Do not modify or discontinue any currently active code status orders. Healthcare Agents on File Name Relationship Healthcare Agent Relationshi p Communication Rafi Abbott Health Care Agent Care Teams Purchasing Manager Relationship Specialty Start Date End Date Manny Suarez MD [address] [place] [id number] PCP - General 02/12/23
--- OUTSIDE RECORDS SUMMARY | 2025-04-13 15:09 | XMS_ITS ---
Author Organization [facility] Care Team Providers Care Layout Inspector Name Role Phone Isabell Sullivan Unavailable Unavailable Randee Bazan Unavailable Unavailable Marcy Vasquez Unavailable Unavailable Alexus Bills Unavailable Unavailable Allergies and adverse reactions No Known Allergies Care Team Name Role Address Phone Organization Dates Randee Bazan PCP [address], [place], [address], [place] (Office): [facility] 06/01/2023 - 06/05/2023 Isabell Sullivan [address], [place], [address], [place] (Office): [facility] 06/01/2023 - 06/05/2023 Marcy Vasquez [address], [place], [address], [place] (Office): [facility] 06/01/2023 - 06/05/2023 Alexus Bills [address] [place], [address], [place] (Office): [facility] 06/01/2023 - 06/05/2023 Mental Status Section Date Assessment Total Score Description 06/05/2023 BIMS 15 cognitively int act CAM 0 No delirium ind icated PHQ-9 00 06/05/2023 BIMS 15 cognitively int act CAM 0 No delirium ind icated PHQ-9 00 Problems Problem # Description Date of onset Resolved Date Code CodeSystem Concern Status 1 OTHER LACK OF COORDINATION 06/01/[address] active 2 TRAUMATIC SUBDURAL HEMORRHAGE WITHOUT LOSS OF CONSCIOUSNESS, SUBSEQUENT ENCOUNTER 06/01/[address] active 3 UNSPECIFIED DEMENTIA, UNSPECIFIED SEVERITY, WITHOUT BEHAVIORAL DISTURBANCE, PSYCHOTIC DISTURBANCE, MOOD DISTURBANCE, AND ANXIETY 06/01/[address] active 4 UNSPECIFIED FALL, SUBSEQUENT ENCOUNTER 06/01/[address] active 5 UNSTEADINESS ON FEET 06/01/[id number] active Reason for Referral No Reasons for Referral Entered Social History Social History Observation Description Start Date End Date Code Code System Current Smoking Status Tobacco smoking consumption unknown 918534089 SNOMED CT Sex Assigned At Female 1945 47601-2 [facility] Gender Identity Vital Signs Code Code System Vitals Name Values and Units Timing Information 94464-7 [facility] Pain Level Value=0.0 06/05/2023 9279-1 [facility] Respiratory Rate Value=16.0 Units=/m in 06/05/2023 8462-4 [facility] Blood Pressure-Diastolic Value=69 Un its=mmHg 06/05/2023 8480-6 [facility] Blood Pressure-Systolic Ahvro=117 Un its=mmHg 06/05/2023 8310-5 [facility] Body Temperature Value=97.3 Units= F 06/05/2023 8867-4 [facility] Heart rate Value=79.0 Units=/min 53220-8 [facility] O2 % BldC Oximetry Value=97.0 Units= % 06/05/2023 24346-3 [facility] Weight Bycxd=129.6 Units=Lbs 8302-2 [facility] Height Value=60.0 Units=Inches 06/01/2023
--- OUTSIDE RECORDS SUMMARY | 2025-04-13 15:09 | XMS_ITS ---
Author Name [facility] Organization Unknown Results Test Name/Text Value Interpretation Date Range Source CO2 SerPl-sCnc 29.0 mmol/L 01/16/2025 24 - 32 [facility] Glucose SerPl-mCnc 92.0 mg/dL 01/16/2025 70 - 199 [facility] Potassium SerPl-sCnc 3.7 mmol/L 01/16/2025 3.5 - 5.1 [facility] Chloride SerPl-sCnc 103.0 mmol/L 01/16/2025 98 - 107 [facility] BUN/Creat SerPl 52.0 Above high normal 01/16/2025 12 - 20 [facility] eGFRcr SerPlBld CKD-EPI 2020 97.0 mL/min/1.73m2 01/16/2025 - [facility] Anion Gap SerPl Calc-sCnc 8.0 01/16/2025 5 - 14 [facility] Sodium SerPl-sCnc 140.0 mmol/L 01/16/2025 135 - 14 5 [facility] Creat SerPl-mCnc 0.5 mg/dL 01/16/2025 0.5 - 1 [facility] BUN SerPl-mCnc 26.0 mg/dL Above high normal 01/16/2025 7 - 1 7 [facility] Calcium SerPl-mCnc 8.9 mg/dL 01/16/2025 8.4 - 10.2 [facility] Phosphate SerPl-mCnc 4.2 mg/dL 01/16/2025 2.5 - 4.5 [facility] Magnesium SerPl-mCnc 2.0 mg/dL 01/16/2025 1.7 - 2.8 [facility] Hct VFr Bld Auto 31.9 % Below low normal 01/16/2025 37 - 47 [facility] RBC # Bld Auto 3.29 M/mcL Below low normal 01/16/2025 4.2 - 5.4 [facility] Platelet # Bld Auto 317.0 K/mcL 01/16/2025 150 - 450 [facility] Hgb Bld-mCnc 10.6 g/dL Below low normal 01/16/2025 12.5 - 16 [facility] WBC # Bld Auto 4.8 K/mcL 01/16/2025 4 - 10.5 [facility] RBC Auto 96.9 FL 01/16/2025 78 - 100 [facility] PMV Bld Auto 8.2 FL 01/16/2025 7.4 - 11.4 [facility] MCHC RBC Auto-EntMCnc 33.3 g/dL 01/16/2025 32 - 36 [facility] RDW RBC Auto 13.2 % 01/16/2025 12.1 - 16.2 [facility] MCH RBC Qn Auto 32.2 pcg 01/16/2025 25 - 33 [facility] LACTIC ACID 1.5 mmol/L 01/16/2025 0.5 - 2.2 [facility] Glucose Bld-mCnc 87.0 mg/dL 01/15/2025 70 - 199 C [facility] Magnesium SerPl-mCnc 2.0 mg/dL 01/15/2025 1.7 - 2.8 [facility] Glucose SerPl-mCnc 90.0 mg/dL 01/15/2025 70 - 199 [facility] Anion Gap SerPl Calc-sCnc 8.0 01/15/2025 5 - 14 [facility] Calcium SerPl-mCnc 9.0 mg/dL 01/15/2025 8.4 - 10.2 [facility] BUN/Creat SerPl 30.0 Above high normal 01/15/2025 12 - 20 [facility] CO2 SerPl-sCnc 29.0 mmol/L 01/15/2025 24 - 32 [facility] Sodium SerPl-sCnc 141.0 mmol/L 01/15/2025 135 - 14 5 [facility] BUN SerPl-mCnc 15.0 mg/dL 01/15/2025 7 - 17 [facility] Potassium SerPl-sCnc 3.3 mmol/L Below low normal 01/15/2025 3.5 - 5.1 [facility] Creat SerPl-mCnc 0.5 mg/dL 01/15/2025 0.5 - 1 [facility] eGFRcr SerPlBld CKD-EPI 2020 97.0 mL/min/1.73m2 01/15/2025 - [facility] Chloride SerPl-sCnc 104.0 mmol/L 01/15/2025 98 - 107 [facility] Hct VFr Bld Auto 34.1 % Below low normal 01/15/2025 37 - 47 [facility] Eosinophil NFr Bld Auto 4.3 % 01/15/2025 0 - 6 [facility] WBC # Bld Auto 6.8 K/mcL 01/15/2025 4 - 10.5 [facility] MCHC RBC Auto-EntMCnc 34.3 g/dL 01/15/2025 32 - 36 [facility] RBC Auto 95.6 FL 01/15/2025 78 - 100 [facility] RDW RBC Auto 13.4 % 01/15/2025 12.1 - 16.2 [facility] PMV Bld Auto 8.3 FL 01/15/2025 7.4 - 11.4 [facility] Basophils # Bld Auto 0.1 K/mcL 01/15/2025 0 - 0.2 [facility] Neutrophils # Bld Auto 3.3 K/mcL 01/15/2025 1.8 - 7.8 [facility] Lymphocytes # Bld Auto 1.8 K/mcL 01/15/2025 1 - 3.2 [facility] Eosinophil # Bld Auto 0.3 K/mcL 01/15/2025 0 - 0.5 [facility] Platelet # Bld Auto 311.0 K/mcL 01/15/2025 150 - 450 [facility] Monocytes NFr Bld Auto 18.8 % Above high normal 01/15/2025 2 - 12 [facility] Neutrophils NFr Bld Auto 48.7 % 01/15/2025 44 - 74 [facility] Basophils NFr Bld Auto 1.1 % 01/15/2025 0 - 2 [facility] RBC # Bld Auto 3.57 M/mcL Below low normal 01/15/2025 4.2 - 5.4 [facility] MCH RBC Qn Auto 32.8 pcg 01/15/2025 25 - 33 [facility] Hgb Bld-mCnc 11.7 g/dL Below low normal 01/15/2025 12.5 - 16 [facility] Lymphocytes NFr Bld Auto 27.1 % 01/15/2025 20 - 48 [facility] Monocytes # Bld Auto 1.3 K/mcL Above high normal 01/15/2025 0 - 0.8 [facility] Glucose Bld-mCnc 90.0 mg/dL 01/15/2025 70 - 199 C [facility] Glucose Bld-mCnc 76.0 mg/dL 01/15/2025 70 - 199 C [facility] Glucose Bld-mCnc 113.0 mg/dL 01/14/2025 70 - 199 [facility] Glucose Bld-mCnc 130.0 mg/dL 01/14/2025 70 - 199 [facility] Glucose Bld-mCnc 115.0 mg/dL 01/14/2025 70 - 199 [facility] eGFRcr SerPlBld CKD-EPI 2020 97.0 mL/min/1.73m2 01/14/2025 - [facility] Calcium SerPl-mCnc 9.2 mg/dL 01/14/2025 8.4 - 10.2 [facility] Potassium SerPl-sCnc 3.9 mmol/L 01/14/2025 3.5 - 5.1 [facility] CO2 SerPl-sCnc 26.0 mmol/L 01/14/2025 24 - 32 [facility] Sodium SerPl-sCnc 141.0 mmol/L 01/14/2025 135 - 14 5 [facility] Glucose SerPl-mCnc 137.0 mg/dL Above high normal 01/14/2025 70 - 99 [facility] BUN SerPl-mCnc 15.0 mg/dL 01/14/2025 7 - 17 [facility] Chloride SerPl-sCnc 105.0 mmol/L 01/14/2025 98 - 107 [facility] Creat SerPl-mCnc 0.5 mg/dL 01/14/2025 0.5 - 1 [facility] BUN/Creat SerPl 30.0 Above high normal 01/14/2025 12 - 20 [facility] Anion Gap SerPl Calc-sCnc 10.0 01/14/2025 5 - 14 [facility] Magnesium SerPl-mCnc 2.1 mg/dL 01/14/2025 1.7 - 2.8 [facility] RBC Auto 95.3 FL 01/14/2025 78 - 100 [facility] Monocytes # Bld Auto 0.4 K/mcL 01/14/2025 0 - 0.8 [facility] PMV Bld Auto 8.7 FL 01/14/2025 7.4 - 11.4 [facility] RBC # Bld Auto 3.33 M/mcL Below low normal 01/14/2025 4.2 - 5.4 [facility] Lymphocytes # Bld Auto 0.6 K/mcL Below low normal 01/14/2025 1 - 3.2 [facility] MCHC RBC Auto-EntMCnc 33.8 g/dL 01/14/2025 32 - 36 [facility] Monocytes NFr Bld Auto 7.0 % 01/14/2025 2 - 12 [facility] Hct VFr Bld Auto 31.7 % Below low normal 01/14/2025 37 - 47 [facility] Neutrophils # Bld Auto 4.0 K/mcL 01/14/2025 1.8 - 7.8 [facility] Hgb Bld-mCnc 10.7 g/dL Below low normal 01/14/2025 12.5 - 16 [facility] Basophils NFr Bld Auto 0.2 % 01/14/2025 0 - 2 [facility] Basophils # Bld Auto 0.0 K/mcL 01/14/2025 0 - 0.2 [facility] Lymphocytes NFr Bld Auto 12.7 % Below low normal 01/14/2025 20 - 48 [facility] Platelet # Bld Auto 257.0 K/mcL 01/14/2025 150 - 450 [facility] WBC # Bld Auto 5.0 K/mcL 01/14/2025 4 - 10.5 [facility] Neutrophils NFr Bld Auto 80.0 % Above high normal 01/14/2025 44 - 74 [facility] Eosinophil NFr Bld Auto 0.1 % 01/14/2025 0 - 6 [facility] Eosinophil # Bld Auto 0.0 K/mcL 01/14/2025 0 - 0.5 [facility] MCH RBC Qn Auto 32.2 pcg 01/14/2025 25 - 33 [facility] RDW RBC Auto 13.4 % 01/14/2025 12.1 - 16.2 [facility] Glucose Bld-mCnc 111.0 mg/dL 01/14/2025 70 - 199 [facility] Glucose Bld-mCnc 107.0 mg/dL 01/13/2025 70 - 199 [facility] HCO3 BldA-sCnc 26.0 mmol/L 01/13/2025 22 - 26 [facility] pH BldA 7.42 pH 01/13/2025 7.35 - 7.45 [facility] Base excess BldA Calc-sCnc 1.3 mmol/L 01/13/2025 0 - 2 [facility] pO2 BldA 150.0 mmHg Above high normal 01/13/2025 80 - 105 [facility] SaO2 % BldA 100.0 % Above high normal 01/13/2025 95 - 98 [facility] Luis index Bld+IhG-Rto 23.0 01/13/2025 [facility] pCO2 BldA 40.0 mmHg 01/13/2025 35 - 45 [facility] Glucose Bld-mCnc 147.0 mg/dL 01/13/2025 70 - 199 [facility] Phosphate SerPl-mCnc 3.3 mg/dL 01/13/2025 2.5 - 4.5 [facility] BUN/Creat SerPl 32.5 Above high normal 01/13/2025 12 - 20 [facility] Sodium SerPl-sCnc 142.0 mmol/L 01/13/2025 135 - 14 5 [facility] Anion Gap SerPl Calc-sCnc 9.0 01/13/2025 5 - 14 [facility] Potassium SerPl-sCnc 3.2 mmol/L Below low normal 01/13/2025 3.5 - 5.1 [facility] Chloride SerPl-sCnc 106.0 mmol/L 01/13/2025 98 - 107 [facility] Calcium SerPl-mCnc 9.0 mg/dL 01/13/2025 8.4 - 10.2 [facility] eGFRcr SerPlBld CKD-EPI 2020 102.0 mL/min/1.73m2 01/13/2025 - [facility] Glucose SerPl-mCnc 150.0 mg/dL 01/13/2025 70 - 199 [facility] CO2 SerPl-sCnc 27.0 mmol/L 01/13/2025 24 - 32 [facility] Creat SerPl-mCnc 0.4 mg/dL Below low normal 01/13/2025 0.5 - 1 [facility] BUN SerPl-mCnc 13.0 mg/dL 01/13/2025 7 - 17 [facility] Magnesium SerPl-mCnc 1.8 mg/dL 01/13/2025 1.7 - 2.8 [facility] Basophils # Bld Auto 0.0 K/mcL 01/13/2025 0 - 0.2 [facility] Basophils NFr Bld Auto 0.4 % 01/13/2025 0 - 2 [facility] Hgb Bld-mCnc 11.1 g/dL Below low normal 01/13/2025 12.5 - 16 [facility] RBC Auto 94.8 FL 01/13/2025 78 - 100 [facility] Monocytes NFr Bld Auto 14.2 % Above high normal 01/13/2025 2 - 12 [facility] Hct VFr Bld Auto 32.6 % Below low normal 01/13/2025 37 - 47 [facility] RDW RBC Auto 13.3 % 01/13/2025 12.1 - 16.2 [facility] PMV Bld Auto 8.9 FL 01/13/2025 7.4 - 11.4 [facility] Monocytes # Bld Auto 0.9 K/mcL Above high normal 01/13/2025 0 - 0.8 [facility] Neutrophils NFr Bld Auto 66.6 % 01/13/2025 44 - 74 [facility] Lymphocytes NFr Bld Auto 13.8 % Below low normal 01/13/2025 20 - 48 [facility] MCH RBC Qn Auto 32.3 pcg 01/13/2025 25 - 33 [facility] MCHC RBC Auto-EntMCnc 34.1 g/dL 01/13/2025 32 - 36 [facility] WBC # Bld Auto 6.3 K/mcL 01/13/2025 4 - 10.5 [facility] Lymphocytes # Bld Auto 0.9 K/mcL Below low normal 01/13/2025 1 - 3.2 [facility] Neutrophils # Bld Auto 4.2 K/mcL 01/13/2025 1.8 - 7.8 [facility] Eosinophil NFr Bld Auto 5.0 % 01/13/2025 0 - 6 [facility] Eosinophil # Bld Auto 0.3 K/mcL 01/13/2025 0 - 0.5 [facility] Platelet # Bld Auto 259.0 K/mcL 01/13/2025 150 - 450 [facility] RBC # Bld Auto 3.44 M/mcL Below low normal 01/13/2025 4.2 - 5.4 [facility] Phosphate SerPl-mCnc 2.0 mg/dL Below low normal 01/12/2025 2.5 - 4.5 [facility] eGFRcr SerPlBld CKD-EPI 2020 102.0 mL/min/1.73m2 01/12/2025 - [facility] Calcium SerPl-mCnc 8.9 mg/dL 01/12/2025 8.4 - 10.2 [facility] CO2 SerPl-sCnc 24.0 mmol/L 01/12/2025 24 - 32 [facility] Anion Gap SerPl Calc-sCnc 10.0 01/12/2025 5 - 14 [facility] Glucose SerPl-mCnc 171.0 mg/dL 01/12/2025 70 - 199 [facility] Potassium SerPl-sCnc 3.1 mmol/L Below low normal 01/12/2025 3.5 - 5.1 [facility] BUN/Creat SerPl 22.5 Above high normal 01/12/2025 12 - 20 [facility] BUN SerPl-mCnc 9.0 mg/dL 01/12/2025 7 - 17 [facility] Chloride SerPl-sCnc 105.0 mmol/L 01/12/2025 98 - 107 [facility] Creat SerPl-mCnc 0.4 mg/dL Below low normal 01/12/2025 0.5 - 1 [facility] Sodium SerPl-sCnc 139.0 mmol/L 01/12/2025 135 - 14 5 [facility] Magnesium SerPl-mCnc 1.7 mg/dL 01/12/2025 1.7 - 2.8 [facility] Hct VFr Bld Auto 36.0 % Below low normal 01/12/2025 37 - 47 [facility] RBC # Bld Auto 3.77 M/mcL Below low normal 01/12/2025 4.2 - 5.4 [facility] RBC Auto 95.4 FL 01/12/2025 78 - 100 [facility] Hgb Bld-mCnc 12.3 g/dL Below low normal 01/12/2025 12.5 - 16 [facility] PMV Bld Auto 8.7 FL 01/12/2025 7.4 - 11.4 [facility] Lymphocytes NFr Bld Auto 13.0 % Below low normal 01/12/2025 20 - 48 [facility] MCH RBC Qn Auto 32.5 pcg 01/12/2025 25 - 33 [facility] Monocytes NFr Bld Auto 14.8 % Above high normal 01/12/2025 2 - 12 [facility] RDW RBC Auto 13.3 % 01/12/2025 12.1 - 16.2 [facility] Eosinophil # Bld Auto 0.2 K/mcL 01/12/2025 0 - 0.5 [facility] Platelet # Bld Auto 267.0 K/mcL 01/12/2025 150 - 450 [facility] Neutrophils # Bld Auto 5.1 K/mcL 01/12/2025 1.8 - 7.8 [facility] Basophils NFr Bld Auto 0.4 % 01/12/2025 0 - 2 [facility] WBC # Bld Auto 7.4 K/mcL 01/12/2025 4 - 10.5 [facility] Lymphocytes # Bld Auto 1.0 K/mcL 01/12/2025 1 - 3.2 [facility] Eosinophil NFr Bld Auto 3.1 % 01/12/2025 0 - 6 [facility] Neutrophils NFr Bld Auto 68.7 % 01/12/2025 44 - 74 [facility] Monocytes # Bld Auto 1.1 K/mcL Above high normal 01/12/2025 0 - 0.8 [facility] MCHC RBC Auto-EntMCnc 34.1 g/dL 01/12/2025 32 - 36 [facility] Basophils # Bld Auto 0.0 K/mcL 01/12/2025 0 - 0.2 [facility] Glucose Bld-mCnc 170.0 mg/dL 01/12/2025 70 - 199 [facility] Glucose Bld-mCnc 140.0 mg/dL 01/11/2025 70 - 199 [facility] Glucose Bld-mCnc 137.0 mg/dL 01/11/2025 70 - 199 [facility] WNV IgG Ser IA-aCnc 0.27 INDEX 01/19/2025 - 1.3 [facility] WNV IgM Ser IA-aCnc 0.01 INDEX 01/19/2025 - 0.9 [facility] BUN/Creat SerPl 18.0 01/11/2025 12 - 20 [facility] Potassium SerPl-sCnc 3.5 mmol/L 01/11/2025 3.5 - 5.1 [facility] Calcium SerPl-mCnc 8.9 mg/dL 01/11/2025 8.4 - 10.2 [facility] BUN SerPl-mCnc 9.0 mg/dL 01/11/2025 7 - 17 [facility] Anion Gap SerPl Calc-sCnc 13.0 01/11/2025 5 - 14 [facility] CO2 SerPl-sCnc 19.0 mmol/L Below low normal 01/11/2025 24 - 32 [facility] eGFRcr SerPlBld CKD-EPI 2020 97.0 mL/min/1.73m2 01/11/2025 - [facility] Sodium SerPl-sCnc 140.0 mmol/L 01/11/2025 135 - 14 5 [facility] Glucose SerPl-mCnc 106.0 mg/dL 01/11/2025 70 - 199 [facility] Chloride SerPl-sCnc 108.0 mmol/L Above high normal 01/11/2025 98 - 107 [facility] Creat SerPl-mCnc 0.5 mg/dL 01/11/2025 0.5 - 1 [facility] Magnesium SerPl-mCnc 1.8 mg/dL 01/11/2025 1.7 - 2.8 [facility] Neutrophils NFr Bld Auto 68.2 % 01/11/2025 44 - 74 [facility] Hct VFr Bld Auto 34.1 % Below low normal 01/11/2025 37 - 47 [facility] PMV Bld Auto 8.6 FL 01/11/2025 7.4 - 11.4 [facility] Lymphocytes # Bld Auto 1.3 K/mcL 01/11/2025 1 - 3.2 [facility] Platelet # Bld Auto 230.0 K/mcL 01/11/2025 150 - 450 [facility] RDW RBC Auto 13.6 % 01/11/2025 12.1 - 16.2 [facility] Basophils # Bld Auto 0.0 K/mcL 01/11/2025 0 - 0.2 [facility] Eosinophil NFr Bld Auto 1.9 % 01/11/2025 0 - 6 [facility] MCH RBC Qn Auto 32.7 pcg 01/11/2025 25 - 33 [facility] MCHC RBC Auto-EntMCnc 34.3 g/dL 01/11/2025 32 - 36 [facility] Lymphocytes NFr Bld Auto 17.4 % Below low normal 01/11/2025 20 - 48 [facility] Monocytes # Bld Auto 0.9 K/mcL Above high normal 01/11/2025 0 - 0.8 [facility] Monocytes NFr Bld Auto 12.1 % Above high normal 01/11/2025 2 - 12 [facility] Eosinophil # Bld Auto 0.1 K/mcL 01/11/2025 0 - 0.5 [facility] Neutrophils # Bld Auto 5.3 K/mcL 01/11/2025 1.8 - 7.8 [facility] WBC # Bld Auto 7.7 K/mcL 01/11/2025 4 - 10.5 [facility] RBC Auto 95.2 FL 01/11/2025 78 - 100 [facility] Hgb Bld-mCnc 11.7 g/dL Below low normal 01/11/2025 12.5 - 16 [facility] Basophils NFr Bld Auto 0.4 % 01/11/2025 0 - 2 [facility] RBC # Bld Auto 3.59 M/mcL Below low normal 01/11/2025 4.2 - 5.4 [facility] Glucose Bld-mCnc 108.0 mg/dL 01/11/2025 70 - 199 [facility] Trigl SerPl-mCnc 102.0 mg/dL 01/11/2025 - 150 [facility] Glucose Bld-mCnc 100.0 mg/dL 01/11/2025 70 - 199 [facility] Glucose Bld-mCnc 157.0 mg/dL 01/10/2025 70 - 199 [facility] Glucose Bld-mCnc 67.0 mg/dL Below low normal 01/10/2025 70 - 199 [facility] BUN/Creat SerPl 15.7 01/10/2025 12 - 20 [facility] eGFRcr SerPlBld CKD-EPI 2020 89.0 mL/min/1.73m2 01/10/2025 - [facility] Glucose SerPl-mCnc 91.0 mg/dL 01/10/2025 70 - 99 [facility] Potassium SerPl-sCnc 3.2 mmol/L Below low normal 01/10/2025 3.5 - 5.1 [facility] Sodium SerPl-sCnc 142.0 mmol/L 01/10/2025 135 - 14 5 [facility] Calcium SerPl-mCnc 8.9 mg/dL 01/10/2025 8.4 - 10.2 [facility] CO2 SerPl-sCnc 21.0 mmol/L Below low normal 01/10/2025 24 - 32 [facility] BUN SerPl-mCnc 11.0 mg/dL 01/10/2025 7 - 17 [facility] Creat SerPl-mCnc 0.7 mg/dL 01/10/2025 0.5 - 1 CT [facility] Chloride SerPl-sCnc 109.0 mmol/L Above high normal 01/10/2025 98 - 107 [facility] Anion Gap SerPl Calc-sCnc 12.0 01/10/2025 5 - 14 [facility] Magnesium SerPl-mCnc 1.9 mg/dL 01/10/2025 1.7 - 2.8 [facility] RBC Auto 94.9 FL 01/10/2025 78 - 100 [facility] WBC # Bld Auto 7.7 K/mcL 01/10/2025 4 - 10.5 [facility] Basophils # Bld Auto 0.1 K/mcL 01/10/2025 0 - 0.2 [facility] RDW RBC Auto 13.5 % 01/10/2025 12.1 - 16.2 [facility] Eosinophil NFr Bld Auto 1.8 % 01/10/2025 0 - 6 [facility] Monocytes # Bld Auto 0.9 K/mcL Above high normal 01/10/2025 0 - 0.8 [facility] Lymphocytes # Bld Auto 1.8 K/mcL 01/10/2025 1 - 3.2 [facility] Monocytes NFr Bld Auto 12.2 % Above high normal 01/10/2025 2 - 12 [facility] Neutrophils NFr Bld Auto 62.3 % 01/10/2025 44 - 74 [facility] Hgb Bld-mCnc 11.4 g/dL Below low normal 01/10/2025 12.5 - 16 [facility] RBC # Bld Auto 3.5 M/mcL Below low normal 01/10/2025 4.2 - 5 .4 [facility] Eosinophil # Bld Auto 0.1 K/mcL 01/10/2025 0 - 0.5 [facility] PMV Bld Auto 8.9 FL 01/10/2025 7.4 - 11.4 [facility] MCH RBC Qn Auto 32.6 pcg 01/10/2025 25 - 33 [facility] Hct VFr Bld Auto 33.2 % Below low normal 01/10/2025 37 - 47 [facility] Lymphocytes NFr Bld Auto 22.8 % 01/10/2025 20 - 48 [facility] Platelet # Bld Auto 270.0 K/mcL 01/10/2025 150 - 450 [facility] Basophils NFr Bld Auto 0.9 % 01/10/2025 0 - 2 [facility] Neutrophils # Bld Auto 4.8 K/mcL 01/10/2025 1.8 - 7.8 [facility] MCHC RBC Auto-EntMCnc 34.4 g/dL 01/10/2025 32 - 36 [facility] Glucose Bld-mCnc 93.0 mg/dL 01/10/2025 70 - 199 C [facility] Glucose Bld-mCnc 106.0 mg/dL 01/10/2025 70 - 199 [facility] Glucose Bld-mCnc 103.0 mg/dL 01/09/2025 70 - 199 [facility] EBV DNA CSF DEDRICK+probe-aCnc <50 01/13/2025 - 50 [facility] EBV DNA Spec DEDRICK+probe-Log# <1.70 01/13/2025 - 1.7 [facility] EBV DNA CSF Ql DEDRICK+probe Not detected 01/13/2025 - [facility] EBV EA IgG Ser Ql IA <5.0 01/12/2025 - 9 [facility] EBV DNA Spec DEDRICK+probe-Log# <1.70 01/13/2025 - 1.7 [facility] EBV DNA SerPl DEDRICK+probe-aCnc <50 01/13/2025 - 50 [facility] EBV DNA Spec Ql DEDRICK+probe Not detected 01/13/2025 - [facility] Glucose CSF-mCnc 79.0 mg/dL Above high normal 01/09/2025 40 - 70 [facility] Prot CSF-mCnc 102.0 mg/dL Above high normal 01/09/2025 12 - 60 [facility] HSV2 DNA Spec Ql DEDRICK+probe Not detected 01/13/2025 - [facility] Specimen source Cvx/Vag Cyto CSF 01/13/2025 [facility] HSV1 DNA Spec Ql DEDRICK+probe Not detected 01/13/2025 - [facility] Specimen source Cvx/Vag Cyto CSF 01/13/2025 [facility] VZV DNA Spec Ql DEDRICK+probe Not detected 01/13/2025 - [facility] CMV Ag Spec Ql Not detected 01/13/2025 - C [facility] Specimen source Cvx/Vag Cyto CSF 01/13/2025 [facility] Appearance CSF Clear/Colorless 01/09/2025 - [facility] Color CSF Colorless 01/09/2025 - [facility] N Tube # CSF 4.0 01/09/2025 [facility] WBC # CSF 8.0 /mm3 Above high normal 01/09/2025 0 - 5 C [facility] Appearance spun CSF Xanthochromic Absent 01/09/2025 - [facility] RBC # CSF 2.0 /mm3 Above high normal 01/09/2025 0 - 0 C [facility] WNV IgG CSF IA-aCnc <1.30 01/20/2025 [facility] WNV IgM CSF IA-aCnc <0.90 01/20/2025 [facility] NMDAR IgG Titr CSF IF See Below 01/16/2025 [facility] Glucose SerPl-mCnc 129.0 mg/dL Above high normal 01/09/2025 70 - 99 [facility] Anion Gap SerPl Calc-sCnc 10.0 01/09/2025 5 - 14 [facility] Creat SerPl-mCnc 0.6 mg/dL 01/09/2025 0.5 - 1 CT _[facility] Chloride SerPl-sCnc 107.0 mmol/L 01/09/2025 98 - 107 [facility] Sodium SerPl-sCnc 139.0 mmol/L 01/09/2025 135 - 14 5 [facility] Calcium SerPl-mCnc 8.4 mg/dL 01/09/2025 8.4 - 10.2 [facility] BUN/Creat SerPl 15.0 01/09/2025 12 - 20 [facility]_ [facility] CO2 SerPl-sCnc 22.0 mmol/L Below low normal 01/09/2025 24 - 32 [facility] eGFRcr SerPlBld CKD-EPI 2020 93.0 mL/min/1.73m2 01/09/2025 - [facility] N BUN SerPl-mCnc 9.0 mg/dL 01/09/2025 7 - 17 [facility] Potassium SerPl-sCnc 3.0 mmol/L Below low normal 01/09/2025 3.5 - 5.1 [facility] Magnesium SerPl-mCnc 1.9 mg/dL 01/09/2025 1.7 - 2.8 [facility] RBC Auto 94.9 FL 01/09/2025 78 - 100 [facility] N Lymphocytes # Bld Auto 1.6 K/mcL 01/09/2025 1 - 3.2 [facility] MCHC RBC Auto-EntMCnc 33.8 g/dL 01/09/2025 32 - 36 [facility] MCH RBC Qn Auto 32.1 pcg 01/09/2025 25 - 33 [facility]_ [facility] Eosinophil # Bld Auto 0.1 K/mcL 01/09/2025 0 - 0.5 [facility] Monocytes NFr Bld Auto 11.8 % 01/09/2025 2 - 12 [facility] Eosinophil NFr Bld Auto 0.6 % 01/09/2025 0 - 6 [facility] RDW RBC Auto 13.2 % 01/09/2025 12.1 - 16.2 [facility] RBC # Bld Auto 3.83 M/mcL Below low normal 01/09/2025 4.2 - 5.4 [facility] Monocytes # Bld Auto 1.1 K/mcL Above high normal 01/09/2025 0 - 0.8 [facility] Lymphocytes NFr Bld Auto 17.3 % Below low normal 01/09/2025 20 - 48 [facility] Basophils # Bld Auto 0.1 K/mcL 01/09/2025 0 - 0.2 [facility] Hct VFr Bld Auto 36.4 % Below low normal 01/09/2025 37 - 47 [facility] Hgb Bld-mCnc 12.3 g/dL Below low normal 01/09/2025 12.5 - 16 [facility] PMV Bld Auto 8.5 FL 01/09/2025 7.4 - 11.4 [facility] Basophils NFr Bld Auto 0.8 % 01/09/2025 0 - 2 [facility] Neutrophils # Bld Auto 6.5 K/mcL 01/09/2025 1.8 - 7.8 [facility] Platelet # Bld Auto 289.0 K/mcL 01/09/2025 150 - 450 [facility] WBC # Bld Auto 9.4 K/mcL 01/09/2025 4 - 10.5 [facility] Neutrophils NFr Bld Auto 69.5 % 01/09/2025 44 - 74 [facility] pO2 BldA 226.0 mmHg Above high normal 01/09/2025 80 - 105 [facility] pH BldA 7.41 pH 01/09/2025 7.35 - 7.45 [facility] Luis index Bld+IhG-Rto 50.0 01/09/2025 [facility] pCO2 BldA 36.0 mmHg 01/09/2025 35 - 45 [facility] N SaO2 % BldA 100.0 % Above high normal 01/09/2025 95 - 98 [facility] HCO3 BldA-sCnc 23.9 mmol/L 01/09/2025 22 - 26 CT [facility] Base excess BldA Calc-sCnc -1.4 mmol/L Below low normal 01/09/2025 0 - 2 [facility] Trigl SerPl-mCnc 61.0 mg/dL 01/09/2025 - 150 C [facility] Glucose Bld-mCnc 150.0 mg/dL 01/09/2025 70 - 199 [facility] History of Medication Use Medication Directions Dispensed Refills Start Date End Date Stat levETIRAcetam (KEPPRA) 1,000 mg tablet Take 1 tablet (1,000 mg total) by mouth 2 (two) times a day. 01/19/2025 5 aborted lacosamide (VIMPAT) 100 mg tablet Take 1 tablet (100 mg total) by mouth 2 (two) times a day. Max Daily Amount: 200 mg 01/17/2025 5 aborted senna (SENOKOT) tablet 8.6 mg 8.6 mg (1 tablet), oral, Nightly, First dose on Thu01/16/25 at 2100, For 3 doses 01/17/2025 5 completed donepeziL (ARICEPT) tablet 10 mg 10 mg, oral, Nightly, First dose on Thu01/16/25 at 2100 01/17/2025 active sertraline (ZOLOFT) 50 mg tablet Take 1 tablet (50 mg total) by mouth 1 (one) time each day. 01/16/2025 5 aborted polyethylene glycol (MIRALAX) packet 17 g 17 g, oral, Daily, First dose on Thu01/16/25 at 1215, Dissolve in 240 mLs (8 ounces) of water or sports drink prior to giving. 01/16/2025 active guanFACINE (TENEX) tablet 0.5 mg 0.5 mg, oral, Every 12 hours, First dose on Thu01/14/25 at 0015 01/14/2025 5 aborted lactated Ringer's bolus 500 mL 500 mL, intravenous, at 500 mL/hr, Administer over 1 Hours, Once, On Thu01/15/25 at 2245, For 1 dose 01/14/2025 5 completed QUEtiapine (SEROquel) tablet 12.5 mg 12.5 mg, oral, Nightly, First dose on Thu01/14/25 at 1800 01/14/2025 5 aborted lactated Ringer's infusion 100 mL/hr, intravenous, Continuous, Starting on Thu01/14/25 at 0615, For 6 hours 01/14/2025 5 aborted amLODIPine (NORVASC) tablet 2.5 mg 2.5 mg, oral, Daily, First dose (after last modification) on Thu01/14/25 at 0915, On hold since Thu01/16/2025 at 0830 until manually unheld 01/14/2025 active levETIRAcetam (KEPPRA) tablet 1,000 mg 1,000 mg, oral, 2 times daily, First dose on Thu01/14/25 at 0915 01/14/2025 active dexAMETHasone (DECADRON) injection 10 mg 10 mg, intravenous, Every 8 hours scheduled, First dose on Thu01/13/25 at 1400, For 3 doses 01/13/2025 5 completed ipratropium-albuter oL (DUONEB) 0.5-2.5 mg/3 mL nebulizer solution 3 mL 3 mL, nebulization, Every 6 hours PRN, wheezing, Starting on Thu01/14/25 at 1254 01/13/2025 5 active lactated Ringer's bolus 1,000 mL 1,000 mL, intravenous, at 2,000 mL/hr, Administer over 0.5 Hours, Once, On Thu01/13/25 at 0145, For 1 dose 01/13/2025 5 completed magnesium sulfate 2 gram/50 mL (4 %) IVPB 2 g 2 g, intravenous, at 25 mL/hr, Administer over 2 Hours, Once, On Thu01/13/25 at 0745, For 1 dose 01/13/2025 5 completed potassium & sodium phosphates (PHOS-NAK) 280-160-250 mg packet 2 packet 2 packet, Orogastric, Once, On Thu01/13/25 at 0645, For 1 dose, mg dosing is based on phosphorus component. Each packet contains 8 mmol of phosphorus, 7 mEq of potassium, and 7 mEq of sodium 01/13/2025 5 completed amLODIPine (NORVASC) tablet 5 mg 5 mg, oral, Daily, First dose on Thu01/11/25 at 1045, On hold since Thu01/13/2025 at 2346 until manually unheld 01/11/2025 5 aborted fentaNYL (PF) (SUBLIMAZE) injection 25 mcg 25 mcg, intravenous, Every 1 hour PRN, severe pain, agitation and pain, Starting on Thu01/11/25 at 0002 01/11/2025 active mupirocin (BACTROBAN) 2 % ointment 1 Application 1 Application, Each Nostril, 2 times daily, First dose on Thu01/10/25 at 1330, For 5 days, Apply to each nostril. 01/10/2025 5 completed dextrose (D50W) 50% injection 12.5 g 12.5 g, intravenous, Every 15 min PRN, low blood sugar, moderate hypoglycemia *Patient is Unconscious, NPO, unable to swallow: BG 54 - 69 mg/dl*, Starting on Thu01/10/25 at 181601/10/2025 active dextrose (D50W) 50% injection 25 g 25 g, intravenous, Every 15 min PRN, low blood sugar, severe hypoglycemia *Patient is Unconscious, NPO, unable to swallow: BG LESS than 54 mg/dL*, Starting on Thu01/10/25 at 18101/10/2025 active dextrose 15 gram/60 mL oral solution 15 g 15 g, oral, Every 15 min PRN, low blood sugar, hypoglycemia *Patient conscious AND able to drink and swallow safely*, Starting on Thu01/10/25 at 18101/10/2025 active dextrose 15 gram/60 mL oral solution 30 g 30 g, oral, Every 15 min PRN, low blood sugar, hypoglycemia *Patient conscious AND able to drink and swallow safely*, Starting on Thu01/10/25 at 18101/10/2025 active Glucagon HCl (rDNA) injection 1 mg 1 mg, intramuscular, Once as needed, low blood sugar, severe hypoglycemia, Starting on Thu01/10/25 at 181, For 1 dose 01/10/2025 active chlorhexidine (PERIDEX) 0.12 % solution 15 mL 15 mL, Mouth/Throat, 2 times daily, First dose on Thu01/09/25 at 0030 01/09/2025 aborted lacosamide (VIMPAT) injection 100 mg 100 mg, intravenous, Administer over 5 Minutes, Every 12 hours, First dose on Thu01/09/25 at 0045, IV push over 5 minutes for doses up to 400 mg. 01/09/2025 aborted levETIRAcetam (KEPPRA) injection 1,000 mg 1,000 mg, intravenous, Administer over 5 Minutes, 2 times daily, First dose (after last modification) on Thu01/11/25 at 2100, IV push over 5 minutes for doses up to 1500 mg. 01/09/2025 aborted pantoprazole (PROTONIX) injection 40 mg 40 mg, intravenous, Administer over 2 Minutes, Every 24 hours, First dose on Thu01/09/25 at 1530, Patient MUST have BOTH: -Strict NPO (unable to take oral or liquid PPI) -Contraindication to H2RA Pantroprazole - IV push: Reconstitute powder for injection with 10 mL NS; final concentration: 4 mg/mL., 01/09/2025 aborted potassium chloride 20 mEq/100 mL IVPB (premix) 20 mEq 20 mEq, intravenous, at 100 mL/hr, Administer over 1 Hours, Every 1 hour, First dose on Thu01/13/25 at 0645, For 3 doses, For central line administration only. 01/09/2025 completed cefTRIAXone (ROCEPHIN) 2 g in sterile water 20 mL IV syringe 2 g, intravenous, at 400 mL/hr, Administer over 3 Minutes, Every 24 hours, First dose (after last modification) on Thu01/10/25 at 1315, For 9 days, Do not administer simultaneously with any calcium containing solutions via a Y-site in any patient., Indication: Central Nervous System 01/09/2025 aborted fentaNYL (PF) (SUBLIMAZE) injection 50 mcg 50 mcg, intravenous, Every 5 min PRN, severe pain, To achieve pain score LESS than 3, then target RASS goal, Starting on Thu01/09/25 at 0052, For 1 hour, Front-loading dose to be given FIRST if available, for up to 4 doses ONLY. CONTACT PRESCRIBER if more than 4 doses are needed to obtain additiona 01/09/2025 completed gadoterate meglumine (CLARISCAN, DOTAREM) injection 15 mL 15 mL, intravenous, Once in imaging, Starting on Thu01/09/25 at 1655, For 1 dose 01/09/2025 completed sodium chloride 0.9 % flush 10 mL [Order 1 Start] Name: Insert peripheral IV Signed Summary: STAT, Once, On Thu01/09/25 at 0015, For 1 occurrence [Order 1 End] [Order 2 Start] Name: Maintain IV access Signed Summary: Until discontinued, Starting on Thu01/09/25 at 0015, Until Specified [Order 2 End] [Order 3 Start] Name: Saline lock 01/09/2025 active acetaminophen (TYLENOL) tablet 650 mg 650 mg, oral, Every 6 hours PRN, mild pain, Starting on Thu01/09/25 at 0014 01/09/2025 active enoxaparin (LOVENOX) injection 40 mg 40 mg, subcutaneous, Every 24 hours scheduled, First dose on Thu01/09/25 at 1615, Indication: VTE/PE Prophylaxis 01/09/2025 active donepeziL (ARICEPT) 10 mg tablet Take 1 tablet (10 mg total) by mouth at bedtime. 09/21/2024 active amLODIPine (NORVASC) 5 mg tablet TAKE 1 TAB(S) ORALLY DAILY IN THE EVENING 90 DAYS aborted Problems Problem Status Onset Date Problem Type Date of Resoluti on Source Hypokalemia active 2025-01-17 ProblemAct [facility] Primary hypertension active 2025-01-17 ProblemAct [facility] Other hyperlipidemia active 2025-01-17 ProblemAct [facility] Seizure ([facility] V24, [facility] V28) active 2025-01-08 ProblemAct [facility] Subdural hematoma ([facility] V24, [facility] V28) active ProblemAct [facility] Urinary retention active 2025-01-17 ProblemAct [facility] Cognitive disorder active 2025-01-17 ProblemAct [facility] Status epilepticus ([facility] V24, [facility] V28) active 2025-01-17 ProblemAct [facility] Encounters Encounter Type Encounter Reason Primary Diagnosis Location Date Ambulatory [facility] 02/07/2025 Inpatient Seizure Unspecified conv ulsions ([facility] V24, [facility] V28) [facility] 01/09/2025 Care Team Organization Name Specialty Phone Email Start Date End Da te [facility] Usama Lennon MD Primary Care 01/09/2025 [facility] Usama Lennon MD Primary Care 01/09/2025
== END 2025-04-13 14:28 | disposition home or self-care (01) ==
LOC: HO.MAMMO 14:27
PROVIDERS: PCP Internal Medicine; Visit Provider Internal Medicine
DX: Z12.31 Encounter for screening mammogram for malignant neoplasm of breast (principal)
CPT/HCPCS: 77063; 77067

== ENCOUNTER → 2025-04-13 14:45 | Outpatient (BNV) | payer MEDICARE, SELFPAY | PROVIDERS: PCP Internal Medicine; Visit Provider Internal Medicine | DX: Z12.31 Encounter for screening mammogram for malignant neoplasm of breast (principal) | CPT/HCPCS: 77063; 77067 ==

== ENCOUNTER 2025-05-01 07:25 | Outpatient (REF) | payer MEDICARE, SELFPAY ==
--- NOTE | ~2025-05-01 | MM_ITS ---
EXAMINATION(S): 1. MM DIAGNOSTIC DIGITAL BREAST TOMOSYNTHESIS, BILATERAL 2. Targeted ultrasound of the left breast CLINICAL INFORMATION: Comment from screening for bilateral breast findings Right: Mass in the lateral breast anterior to middle depth on the CC view. Left: Focal asymmetry in the central inner breast anterior to middle depth. COMPARISON: Comparison made to multiple prior, most recent April 13, 2025, and most remote May 18, 2019. TECHNIQUE: Digital breast tomosynthesis is performed in full field ML 90 degrees along with computer-aided detection (CAD). Synthesized 2D images are generated from the tomosynthesis. Spot compression tomosynthesis were obtained. FINDINGS: BREAST COMPOSITION: There are scattered areas of fibroglandular density (ACR BI-RADS breast composition Category b). RIGHT BREAST: Previously seen mass in the lateral breast on CC view is no longer seen on today's images. LEFT BREAST: Previously suggested focal asymmetry in the lateral breast at approximately 9 o'clock position is pliable with spot compression; local parenchyma is similar to multiple prior studies as far back as 2018. Targeted ultrasound of the left breast was performed at the location of the mammographic finding. The survey along the 8:00-10:00 positions did not reveal suspicious sonographic correlate. MM/MM tomosynthesis added view BI IMPRESSION: RIGHT BREAST: Negative, no mammographic evidence of malignancy. Normal interval follow-up is recommended in 12 months. LEFT BREAST: Benign, no mammographic evidence of malignancy. Normal interval follow-up is recommended in 12 months. ASSESSMENT: BI-RADS 2 - Benign Findings RECOMMENDATION: 1 year F/U Results were provided to the patient at time of visit by the technologist. This patient's information was entered into a reminder system with a target due date for their next mammogram. Electronically signed by: Carlos Alberto Arteaga MD 05/01/2025 08:24 AM EDT
--- OUTSIDE RECORDS SUMMARY | 2025-05-01 07:27 | XMS_ITS | Clinical Summary ---
Author Organization [facility] Address [address] [place] [phone] Phone Care Team Providers Care Director Of Pupil Personnel Program Name Role Phone Manny Lennon MD Primary Care Provider [phone] Allergies No known active allergies Medications donepeziL (ARICEPT) 10 mg tablet Take 1 tablet (10 mg total) by mouth at bedtime. 09/21/2024 Active sertraline (ZOLOFT) 50 mg tablet Take 1 tablet (50 mg total) by mouth 1 (one) time each day. 30 each 11 01/20/2025 Active lacosamide (VIMPAT) 100 mg tabletIndication s:Seizure ([facility] V24, [facility] V28) Take 1 tablet (100 mg total) by mouth 2 (two) times a day. Max Daily Amount: 200 mg 90 tablet 1 02/08/2025 Active levETIRAcetam (KEPPRA) 1,000 mg tabletIndication s:Seizure (CMS/HCC V24, CMS/HCC V28) Take 1 tablet (1,000 mg total) by mouth 2 (two) times a day. 180 each 3 02/08/2025 Active Active Problems Problem Noted Date Diagnosed Date Status epilepticus ([facility] V24, [facility] V28) Other hyperlipidemia 01/17/2025 Primary hypertension 01/17/2025 Urinary retention 01/17/2025 Hypokalemia 01/17/2025 Cognitive disorder 01/17/2025 Seizure ([facility] V24, CMS/HCC V28) 01/08/2025 Subdural hematoma ([facility] V24, [facility] V28) Resolved Problems Problem Noted Date Diagnosed Date Resolved Date Ataxia 11/11/2024 11/11/2024 Dizziness, nonspecific 11/10/202411/11 Dizziness, nonspecific 11/09/202411/10 Encounters Date Type Department Care Team Description 02/07/2025 8:20 AM EDT Office Visit Neurology - [address] [place] [address] Hari Gonzalez MD Seizure ([facility] V24, [facility] V28) (Primary Dx); Cognitive disorder from Last 3 Months Surgical History Surgery Date Site/Laterality Comments COLONOSCOPY 03/13/2020 PROCEDURE: HISTORICAL COLONOSCOPY COLONOSCOPY 08/29/2013 PROCEDURE: HISTORICAL COLONOSCOPY Medical History Medical History Date Comments HTN (hypertension) DX:HTN (hyper tension) HLD (hyperlipidemia) Syncope Dementia ([facility] V24, [facility] V28) Traumatic subdural hematoma ([facility] V24, [facility] V28) Social History Tobacco Use Types [...] care for your loved ones. For example, children's tutor nursery or elderly care for an older adult? [...] 2:00 PM EST Office Visit Neurology - [place] [place] [address] Hari Gonzalez MD [address] [place] [address] Health Maintenance Due Date Last Done Comments DTaP,Tdap,and Td Vaccines (1 - Tdap) 1966 Zoster Vaccines (1 of 2) 1997 Pneumococcal Vaccine: 50+ Years (2 of 2 - PPSV23) 09/05/2017 09/05/2016 Hepatitis C Screening 07/20/2022 Medicare Annual Wellness Visit 07/20/2022 RSV Immunization Adult Patients (1 - 1-dose 75+ series) 2022 Depression Screening 08/17/2024 COVID-19 Vaccine ( season) 2025 06/02/2022, 12/02/2021, 05/23/2021, Additional history exists Influenza Vaccine (#1) 2025 , 05/27/2021, 05/15/2020, Additional history exists Social Influencers [...] Procedure Name Priority Date/Time Associated Diagnosis Comments BASIC METABOLIC PANEL Routine 01/16/2025 5:15 AM EDT LIPID PANEL WITH REFLEX TO DIRECT LDL Routine 11/10/2024 5:21 AM EDT [facility] SCREENING DIGITAL Routine 11/21/2021 7:32 PM EDT Encounter for screening mammogram for malignant neoplasm of breast [facility] DEXA AXIAL SKELETON Routine 11/13/2020 2:45 PM EDT Asymptomatic menopausal state from Last 3 Months or Most Recently Relevant to Health Maintenance Results * (ABNORMAL) Basic metabolic panel (01/16/2025 5:15 AM EDT) Sodium 140 135 - 145 mmol/L LAB CHEMISTRY METHOD 01/16/2025 5:55 AM EDT [facility] Potassium 3.7 3.5 - 5.1 mmol/L LAB CHEMISTRY METHOD 01/16/2025 5:55 AM EDT [facility] Chloride 103 98 - 107 mmol/L LAB CHEMISTRY METHOD 01/16/2025 5:55 AM EDT [facility] CO2 29 24 - 32 mmol/L LAB CHEMISTRY METHOD 01/16/2025 5:55 AM EDT [facility] Anion Gap 8 5 - 14 LAB CHEMISTRY METHOD 01/16/2025 5:55 AM EDT [facility] Glucose 92 70 - 199 mg/dL LAB CHEMISTRY METHOD 01/16/2025 5:55 AM EDT [facility] BUN 26(H) 7 - 17 mg/dL LAB CHEMISTRY METHOD 01/16/2025 5:55 AM EDT [facility] Creatinine 0.50 0.50 - 1.00 mg/dL LAB CHEMISTRY METHOD 01/16/2025 5:55 AM EDT [facility] eGFR 97 >=60 mL/min/1. 73m2 LAB CHEMISTRY METHOD 01/16/2025 5:55 AM EDT [facility] Comment:Calculation based on the Chronic Kidney Disease Epidemiology Collaboration (CKD-EPI) equation refit without adjustment for race. BUN/Creatinine Ratio 52.0(H) 12.0 - 20.0 LAB CHEMISTRY METHOD 01/16/2025 5:55 AM EDT [facility] Calcium 8.9 8.4 - 10.2 mg/dL LAB CHEMISTRY METHOD 01/16/2025 5:55 AM EDT [facility] Blood Venous blood specimen / Unknown Venipuncture / Unknown 01/16/2025 5:15 AM EDT 01/16/2025 5:24 AM EDT us Elieser Pedraza MD LAB BLOOD ORDERABLES Final Re sult [facility] [address] [place] [address], * Lipid panel with reflex to direct LDL (11/10/2024 5:21 AM EDT) Cholesterol 141 0 - 200 mg/dL LAB CHEMISTRY METHOD 11/10/2024 6:25 AM EDT [facility] Triglycerides 47 0 - 150 mg/dL LAB CHEMISTRY METHOD 11/10/2024 6:25 AM EDT [facility] HDL 57 >=40 mg/dL LAB CHEMISTRY METHOD 11/10/2024 6:25 AM EDT [facility] LDL Calculated 75 0 - 100 mg/dL LAB CHEMISTRY METHOD 11/10/2024 6:25 AM EDT [facility] VLDL Cholesterol Leighton 9.4 mg/dL LAB CHEMISTRY METHOD 11/10/2024 6:25 AM EDT [facility] Non HDL Chol. (LDL+VLDL) 84 <145 mg/dL LAB CHEMISTRY METHOD 11/10/2024 6:25 AM EDT [facility] Chol/HDL Ratio 2.5 0.0 - 4.4 LAB CHEMISTRY METHOD 11/10/2024 6:25 AM EDT [facility] Blood Venous blood specimen / Unknown Venipuncture / Unknown 11/10/2024 5:21 AM EDT 11/10/2024 5:52 AM EDT us Adan HERNANDEZ LAB BLOOD ORDERABLES Final Res ult [facility] [address] [place] [address], * BUNNY SCREENING DIGITAL (11/21/2021 7:32 PM EDT) Anatomical Region Laterality Modality Mammography 11/21/2021 11:0 8 AM EDT Narrative 11/21/2021 7:32 PM EDT [facility] Diagnostic Imaging Department [address] [place] [address] Patient: SRINIVAS LUQUE I /Age/Sex: 1945 - 76 - F Unit#: [id number] Location/Status: SPDIMAM/REG CLI Mnemonic/Ordering Site: DIGSC/SPMAM Ordering Physician: MANNY LENNON MD Bunny Screening Digital - 11/21/21 - 1156 History: Bilateral breast cancer screening. Technique: Digital mammography. Conventional CC and MLO projections with tomosynthesis MLO views and computer aided detection. Comparison: [facility] 11/13/2020, dating back to 03/14/2013. Breast tissue consists of a combination of fatty and fibroglandular elements (category b density) bilaterally (as calculated by [employer] software). There are benign calcifications on the left. No suspicious group of calcification, architectural distortion, suspicious mass or suspicious asymmetry within either breast. Impression: No evidence of malignancy. BIRADS Category 2, benign findings, 3342F 51364, 65157 Note: Patient information entered into a reminder system with a target due date for the next mammogram: CPT II 7025F Dictating Physician: JIN TORRES MD Electronically Signed by: JIN TORRES MD Dic Date/Time: 11/21/211928 Sign date/Time: 11/21/211931 Procedure Note Jin Torres MD - 08/06/2022 [facility] Diagnostic Imaging Department [address] [place] [address] Patient: SRINIVAS LUQUE I /Age/Sex: 1945 - 76 - F Unit#: [id number] Location/Status: SPDIMA/[facility] CLI Mnemonic/Ordering Site: [facility] Ordering Physician: MANNY LENNON MD Bunny Screening Digital - 11/21/21 - 1156 History: Bilateral breast cancer screening. Technique: Digital mammography. Conventional CC and MLO projectionswith tomosynthesis MLO views and computer aided detection. Comparison: [facility] 11/13/2020, dating back to 03/14/2013. Breast tissue consists of a combination of fatty and fibroglandularelements (category b density) bilaterally (as calculated by [employer]). There are benign calcifications on the left. No suspicious group of calcification, architectural distortion, suspicious mass or suspiciousasymmetry within either breast. Impression: No evidence of malignancy. BIRADS Category 2, benign findings, 3342F 11298, 31614 Note: Patient information entered into a reminder system with a target duedate for the next mammogram: CPT II 7025F Dictating Physician: JIN TORRES MD Electronically Signed by: JIN TORRES MD Dic Date/Time: 11/21/211928 Sign date/Time: 11/21/211931 Manny Lennon MD IMG BI PROCEDURES Final Result * [facility] DEXA AXIAL SKELETON (11/13/2020 2:45 PM EDT) Anatomical Region Laterality Modality Mammography 11/13/2020 9:09 AM EDT Narrative 11/13/2020 2:45 PM EDT [facility] Diagnostic Imaging Department [address] [place], [place] [id number] Patient: SRINIVAS LUQUE I /Age/Sex: 1945 - 75 - F Unit#: [id number] Location/Status: [facility]/REG CLI Mnemonic/Ordering Site: MAMDEXAAX/SPMAM Ordering Physician: ARYAN HARVEY MD Bunny Dexa Axial Skeleton - 11/13/20 - 1029 [...] probability of hip fracture of 0.7%. Code 30774 Dictating Physician: SABRA SUE MD Electronically Signed by: SABRA SUE MD Dic Date/Time: 11/13/20 1443 Sign date/Time: 11/13/20 1445 Procedure Note Sabra Sue MD - 08/05/2022 [facility] Diagnostic Imaging Department [address] [place] [id number] Patient: SRINIVAS LUQUE Nicole /Age/Sex: 1945 - 75 - F Unit#: [id number] Location/Status: SPDIMAM/REG CLI [facility] Ordering Physician: ARYAN HARVEY MD Bunny Dexa Axial Skeleton - 11/13/201028 [...] density of the femurs bilaterally is 1.077 gm/[id number] is 107% of that of young normals [...] probability of hip fracture of 0.7%. 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
== END 2025-05-01 07:26 | disposition home or self-care (01) ==
LOC: HO.MAMMO 07:25
PROVIDERS: PCP Internal Medicine; Visit Provider Internal Medicine
DX: R92.8 Other abnormal and inconclusive findings on diagnostic imaging of breast (principal)
CPT/HCPCS: 76642; 77062; 77066

== ENCOUNTER → 2025-05-01 07:30 | Outpatient (BNV) | payer MEDICARE, SELFPAY | PROVIDERS: PCP Internal Medicine; Visit Provider Radiology Body Imaging | DX: R92.8 Other abnormal and inconclusive findings on diagnostic imaging of breast (principal) | CPT/HCPCS: 76642; 77066; G0279 ==